=== PATIENT | male | born 1950 | race Caucasian/White ===

== ENCOUNTER → 2018-06-10 | Outpatient (CLI) | payer MEDICARE | LOC: M SMT 09:39 | DX: J44.9 Chronic obstructive pulmonary disease, unspecified (principal); R05 Cough | CPT/HCPCS: 71046 ==

== ENCOUNTER → 2019-11-16 | Outpatient (CLI) | payer MEDICARE ==
[~2019-11-16] MED LIST: ANDR1.62 TOP; ANOR1AER INH; ARNU1INH3 INH; ASPI-1 PO; ASPI81TA26 PO; ATEN25TA PO; FINA5TAB2 PO; FLOM0.4C39 PO; FLUT15.820 NARES; FURO40TA2 PO; FURO80TA2 PO; GABA-843 PO; HYDR-4517 PO; INVO100T PO; LANTINJ4 SC; LATA0.0015 OP; LEVO200T4 PO; LIDOCAINE 1% MDV 20ML VIAL As Ordered ONE; LISI-542 PO; LOSA25TA14 PO; METF500T13 PO; METF850T4 PO; NITR0.4S14 SL; PANT40TA3 PO; PROAAER10 INH; RANO500T7 PO; REST0.05 OU; ROSU40TA4 PO; TEST1.622 TD; TRIM100T8 PO; VICO10TA11 PO; VICT18IN SC; XALA0.007 OU; ZOLP5TAB PO
[2019-11-16 11:09] LABS: PH BODY FLUID 7.611 UNITS (NOT ESTABLISHED); SOURCE, BODY FLUID pH PLEURAL
[2019-11-16 11:11] LABS: APPEARANCE, BODY FLUID CLEAR (CLEAR); PLEURAL FL COLOR YELLOW (COLORLESS); SOURCE, BODY FLUID PLEURAL
[2019-11-16 11:50] LABS: AMYLASE, BODY FLUID 10 U/L (NOT ESTABLISHED); LDH, BODY FLUID 86 U/L (NOT ESTABLISHED); SOURCE, BODY FLUID AMYLASE PLEURAL; SOURCE, BODY FLUID GLUCOSE PLEURAL; SOURCE, BODY FLUID LDH PLEURAL; SOURCE, BODY FLUID TOT PROTEIN PLEURAL; TOTAL PROTEIN, BODY FLUID 3.5 G/DL (NOT ESTABLISHED)
[2019-11-16 11:53] LABS: ALBUMIN 2.4 GM/DL (3.2-5.2); ALT/SGPT 10 U/L (12-78); BILIRUBIN,TOTAL 0.6 MG/DL (0.2-1.0); BLOOD UREA NITROGEN 5 MG/DL (7-18); CALCIUM LEVEL 8.7 MG/DL (8.8-10.2); CARBON DIOXIDE LEVEL 29 MEQ/L (21-32); CHLORIDE LEVEL 104 MEQ/L (98-107); CREATININE FOR GFR 0.83 MG/DL (0.70-1.30); GLOMERULAR FILTRATION RATE > 60.0 (>49); GLUCOSE, FASTING 149 MG/DL (70-100); LDH LACTATE DEHYDROGENASE 342 U/L (87-241); POTASSIUM SERUM 4.8 MEQ/L (3.5-5.1); SODIUM LEVEL 136 MEQ/L (136-145); TOTAL PROTEIN 6.7 GM/DL (6.4-8.2)
[2019-11-16 12:15] VITALS: BP 138/63
--- NOTE | 2019-11-16 12:47 | REP ---
CHEST, TWO VIEWS: Two views of the chest are performed status post right thoracentesis. There is no pneumothorax. There appears to be some very mild residual pleural fluid or thickening on the right. There is a cavitating mass again seen inferiorly on the right. Small left effusion is noted with left basilar interstitial prominence. Heart is not significantly enlarged. There are degenerative changes of the spine. IMPRESSION: No pneumothorax, status post right thoracentesis. Electronically Signed by Ankur Varner MD 11/17/2019 10:03 A
--- NOTE | 2019-11-16 16:25 | REP ---
Ultrasound-guided thoracentesis The procedure was performed by JOSÉ Nguyen, under the direct supervision of Dr. Varner. The risks and benefits of the procedure were explained to the patient and informed consent was obtained both verbally and written. Directly prior to the start of the procedure, a formal timeout was completed in the exam room. Pleural fluid on the right lung zone was localized using ultrasound guidance. The skin was prepped and draped in a sterile fashion. 3 mL of 1% lidocaine 10 mg/ml was used as a local anesthetic. Using ultrasound guidance, an 8-Beninese multi side-hole catheter was inserted and advanced into the fluid. 1,500 ml of yellow colored fluid was withdrawn and sent to the lab for analysis. The patient tolerated the procedure well and there were no immediate complications. After the appropriate amount of monitored convalescence, the patient was discharged from the department. Reviewed by JOSÉ Montero 11/16/2019 01:59 P Electronically Signed by Ankur Varner MD 11/16/2019 04:17 P
--- NOTE | 2019-11-17 00:48 | REP ---
ACCOUNTING PROFESSOR CT IMAGES: Lime Slaker CT images are performed prior to a scheduled CT-guided biopsy of a right lung mass. There is a large pleural effusion, which surrounds the mass, and this increases the risks for the procedure, including pneumothorax and bleeding. After consultation with the referring clinician, we will perform thoracentesis today followed by the right lung biopsy in 48 hours. Electronically Signed by Ankur Varner MD 11/17/2019 10:31 A
== END ==
LOC: M IRPRO 08:20
PROVIDERS: ATTEND Internal Medicine Pulmonary Disease
DX: J90 Pleural effusion, not elsewhere classified (principal); R84.6 Abnormal cytological findings in specimens from respiratory organs and thorax

== ENCOUNTER 2019-11-18 07:01 | Inpatient (IN) | payer MEDICARE ==
[~2019-11-18] VITALS: Ht 188 cm; Wt 111.4 kg
[~2019-11-18 07:01] MED LIST changes: -FURO40TA2 PO; -HYDR-4517 PO; -METF850T4 PO; -TEST1.622 TD; -XALA0.007 OU
[2019-11-18] MEDS ORDERED: METF850T4 PO (07:48)
[2019-11-18] MEDS ORDERED: XALA0.007 OU (07:48)
[2019-11-18] MEDS ORDERED: TEST1.622 TD (07:48)
[2019-11-18] MEDS ORDERED: FURO40TA2 PO (07:48)
[2019-11-18] MEDS ORDERED: HYDR-4517 PO (07:48)
--- NOTE | 2019-11-18 10:34 | REP ---
CHEST, SINGLE VIEW: Single view of the chest is performed status post right lung biopsy. There is a small pneumothorax on the right. The air gap at the apex is 3 cm. Atelectatic changes are noted in the right lung. Cavitating mass in the right lung base is noted. Followup will be performed. Electronically Signed by Ankur Varner MD 11/18/2019 10:54 A
[2019-11-18] MEDS ORDERED: MIDAZOLAM INJ 2MG/2ML VIAL (J2250 PER 1MG) As Ordered ONE ×2 (12:19→12:20)
[2019-11-18] MEDS ORDERED: LIDOCAINE 1% MDV 20ML VIAL As Ordered ONE (12:20)
[2019-11-18] MEDS ORDERED: LIDOCAINE 2% MDV 20ML VIAL As Ordered ONE ×2 (12:20→13:30)
--- NOTE | 2019-11-18 12:30 | REP ---
CHEST, SINGLE VIEW: Single view of the chest is performed and compared to a prior exam the same day. The patient is status post right lung biopsy. There is a stable small right apical pneumothorax. Lungs are unchanged in appearance. Dr. Mack will be consulted to assess for possible chest tube placement or patient followup. Electronically Signed by Ankur Varner MD 11/18/2019 12:42 P
--- NOTE | 2019-11-18 13:40 | REP ---
CT-guided right lower lobe lung biopsy The procedure is performed by JOSÉ Nguyen, under the direct supervision of Dr. Varner. The risks and benefits of the procedure were explained to the patient and informed consent was obtained both orally and written. Directly prior to the start of the procedure, a formal timeout was done in the exam room. The right lower lobe lung mass was localized using CT guidance. Skin was prepped and draped in the usual sterile fashion. 4 ml of 1% lidocaine 10 mg/ml was used as a local anesthetic. Using CT guidance a 19/20 gauge coaxial needle biopsy system was inserted and advanced into the nodule. 6 core biopsy samples were obtained and sent to the lab. CT images obtained directly after the biopsy show a small pneumothorax as well as a small pleural effusion. After 2 hours of monitored convalescence in the department the pneumothorax did not get any better. Dr. Mack was called, and placed a chest tube in the IR department. The patient was transferred to his service and admitted under his care. Reviewed by JOSÉ Montero 11/18/2019 01:29 P Electronically Signed by Ankur Varner MD 11/18/2019 01:32 P
[2019-11-18] MEDS ORDERED: NORCO, ANEXSIA 5/325MG TABLET (HYDROcodone/ACETAMINOPHEN) PO PRN (13:45)
[2019-11-18] MEDS ORDERED: ACETAMINOPHEN TAB 650MG DOSE (2X325MG) PO PRN (13:45)
[2019-11-18] MEDS ORDERED: LEVALBUTEROL 1.25 MG/0.5 ML CONCENTRATE NEB NEB PRN (13:45)
[2019-11-18] MEDS ORDERED: BISACODYL 10 MG SUPP PR PRN (13:45)
[2019-11-18] MEDS ORDERED: PERCOCET 5MG/325MG TAB PO PRN (13:45)
[2019-11-18] MEDS ORDERED: NITROGLYCERIN 0.4 MG SUBL TABLET SL PRN (13:45)
[2019-11-18] MEDS ORDERED: ONDANSETRON 4MG/2ML VIAL IV PRN (13:45)
[2019-11-18 13:55] VITALS: BP 124/62
[2019-11-18 14:09] LABS: APPEARANCE, BODY FLUID CLOUDY (CLEAR); PLEURAL FL COLOR PALE YELLOW (COLORLESS); SOURCE, BODY FLUID PLEURAL
[2019-11-18 14:15] LABS: PH BODY FLUID 7.641 UNITS (NOT ESTABLISHED); SOURCE, BODY FLUID pH PLEURAL
--- NOTE | 2019-11-18 14:33 | REP ---
CHEST, SINGLE VIEW: Single view of the chest is performed. Comparison made with the prior exams of the same day. The patient is status post right lung biopsy with resultant small pneumothorax. A right chest tube has been placed. There may be a very tiny residual right apical pneumothorax. Right basilar cavitating mass is again noted. Prominent interstitial opacities bilaterally are unchanged. Electronically Signed by Ankur Varner MD 11/18/2019 02:57 P
[2019-11-18 14:38] LABS: AMYLASE, BODY FLUID 11 U/L (NOT ESTABLISHED); CHOLESTEROL, BODY FLUID < 50 MG/DL (NOT ESTABLISHED); LDH, BODY FLUID 120 U/L (NOT ESTABLISHED); SOURCE, BODY FLUID ALBUMIN PLEURAL; SOURCE, BODY FLUID AMYLASE PLEURAL; SOURCE, BODY FLUID CHOL PLEURAL; SOURCE, BODY FLUID GLUCOSE PLEURAL; SOURCE, BODY FLUID LDH PLEURAL; SOURCE, BODY FLUID TOT PROTEIN PLEURAL; SOURCE, BODY FLUID TRIG PLEURAL; TOTAL PROTEIN, BODY FLUID 2.9 G/DL (NOT ESTABLISHED); TRIGLYCERIDE, BODY FLUID 17 MG/DL (NOT ESTABLISHED)
[2019-11-18 14:57] LABS: BASO % 0.2 % (0.0-1.0); EOS % 0.3 % (0.0-3.0); HEMATOCRIT 34.6 % (42.0-52.0); HEMOGLOBIN 10.7 g/dl (13.5-17.5); LYMPH # 0.7 10^3/uL (1.5-5.0); LYMPH % 7.1 % (24.0-44.0); MEAN CORPUSCULAR HEMOGLOBIN 27.6 pg (27.0-33.0); MEAN CORPUSCULAR HGB CONC 30.9 g/dl (32.0-36.5); MEAN CORPUSCULAR VOLUME 89.4 fl (80.0-96.0); MONO # 0.6 10^3/uL (0.0-0.8); MONO % 6.1 % (0.0-5.0); NEUTROPHILS % 85.9 % (36.0-66.0); PLATELET COUNT, AUTOMATED 282 10^3/uL (150-450); RED BLOOD COUNT 3.87 10^6/uL (4.30-6.10); WHITE BLOOD COUNT 9.4 10^3/uL (4.0-10.0)
--- NOTE | 2019-11-18 15:04 | HPE ---
DATE OF ADMISSION: 11/18/2019 The patient seen at the urgent request of radiology for a pneumothorax after a lung biopsy of a cavitary right lower lobe lesion. HISTORY OF PRESENT ILLNESS: The patient is a 69-year-old white male whose antecedent history revealed a right lower lobe cavitary lesion on a CT scan done in early September. He was seen by Dr. Haas of pulmonology and sent for a needle biopsy. He also had a pleural effusion which was tapped a few days ago without incident. The pleural fluid was returned with a pH of 7.6 with an LDH of 86, total protein of 30.5. His total protein yesterday was 6.7 with an LDH of 342, making this a transudative effusion. The majority of his cells were mononuclears and lymphocytes. 10% were PMNs and 90% were the mononuclear lymphocytes. Glucose was 141. He states that after his pleural fluid was drained, he had hemoptysis. Other than that, he denies cough or sputum production. He denies fevers, chills, or sweats. He does get short of breath just walking about a block. He can do the daily activities of livings in his house, however. He swallows all right and eats all right. He does not complain of any chest pain or chest discomfort. He denies orthopnea or paroxysmal nocturnal dyspnea. In June, he was also seen by Dr. Haas, and he was found to be dizzy, weak, and pale with bibasilar crackles and lower extremity edema, and he was sent to the emergency room. He, however, detoured and did not go to the emergency room that day. PAST MEDICAL HISTORY: Includes: 1. Diabetes. 2. Coronary artery disease, status post stenting times two in the left anterior descending coronary artery. 3. Atrial fibrillation, status post an ablation in 2016 and a cardioversion in the same year. 4. Degenerative disc disease. 5. Obstructive sleep apnea, on continuous positive airway pressure (CPAP) therapy at home of 9 cm of water. 6. Prior morbid obesity, status post gastric bypass. PAST SURGERIES: The above gastric bypass, the above stenting procedures, the above ablation, bilateral cataract surgery. HABITS: Was a former smoker. TRAVEL HISTORY: Not obtained. OCCUPATIONAL HISTORY: Not obtained. FAMILY HISTORY: Not relative to the acute situation. MEDICATIONS AT HOME: - ProAir two puffs four times a day - aspirin 325 mg every day - atenolol 25 mg every day - Invokana 300 mg every day - Restasis one drop both eyes (OU) twice a day - finasteride 5 mg every day - fluconazole Ellipta one puff every day - Lasix 80 mg every day - gabapentin 300 mg every day - Vicodin 10/325 every 4 hours - insulin glargine 18 units subcutaneous nightly - Victoza 1.2 mg subcutaneous every day - losartan 25 mg every day - Synthroid 200 mcg every day - Xalatan one drop OU nightly - metformin 850 mg three times a day - nitroglycerin 0.4 mg sublingually every 5 minutes as needed as needed chest pain - pantoprazole 40 mg every day - rosuvastatin 40 mg every day - Ranexa 500 mg twice a day - Flomax 0.4 mg nightly - trimethoprim 100 mg every day - Anoro Ellipta one puff every day - zolpidem 5 mg nightly REVIEW OF SYSTEMS: CONSTITUTIONAL: See history of present illness (HPI). EYES: With cataracts. Without diplopia or prior jaundice. NOSE: Without epistaxis. RESPIRATORY: See HPI. CARDIAC: See HPI. GASTROINTESTINAL (GI): Without nausea, vomiting, diarrhea, constipation, melena, or hematochezia. GENITOURINARY (): Without hematuria or dysuria or prior renal stones. NEUROLOGIC: With paresthesias, paralyses, or seizures. PSYCHIATRIC: Without pathological anxieties, depressions, or psychoses. PHYSICAL EXAMINATION: An obese white male in no acute distress. He is rather inpatient with me in giving me a history. VITAL SIGNS: Temperature is 97.6, heart rate is 73 in sinus rhythm with PACs, respiratory rate is 18 without the use of accessory muscles, he is 100% saturated on 2 liters nasal cannula, and his blood pressure is 108/56, his body mass index (BMI) is 37.4. EYES: Pupils equal, round, and reactive to light. Extraocular muscles intact. Sclerae anicteric. NOSE: Without deformity. MOUTH: Shows his mucous membranes to be pink and moist. Lips and commissures without lesions. There is no thrush. LUNGS: Show bibasilar crackles in either side with decreased breath sounds on the right side. Percussion note is full to the diaphragm. CARDIOVASCULAR EXAMINATION: Is without murmurs, click, gallops, or rubs. I cannot feel his point of maximal impulse (PMI). S1 and S2 are normal. He does have an irregular rate and rhythm with his PACs. ABDOMEN: Is soft, nontender. I cannot appreciate hepatomegaly through the obesity. There is no costovertebral angle (CVA) tenderness. EXTREMITIES: Show 2+ pretibial edema. No calf tenderness. No differential swelling of the upper extremities. SKIN: Is warm, dry, and perfused without cyanosis or mottling, including that of the nail beds and the knees. PSYCHIATRIC: Shows him to be awake and alert, oriented times three with appropriate mood and affect and conversational. INVESTIGATIONS: Chemistries on 11/16/2019 showed normal electrolytes with BUN and creatinine of 5 and 0.83, a glucose of 149, and a calcium of 8.7, with normal liver functions and increased LVH of 3.42, albumin is 2.4. Complete blood count (CBC) is pending. I discussed his pleural fluid from a few days ago in the history of present illness. His chest x-ray shows a large pneumothorax approximately 30%. There is no mediastinal shift. Left costophrenic angle is sharp. Right costophrenic angle is blunted. It is an AP portable film. Review of his chest CT done on 09/23/2019 at [facility] shows a large pleural effusion on the right side which was subsequently drained. He has a cavitary lesion in the right lower lobe. He also has a lower lobe nodule in the apical basal segment of the lower lobe. There is an infiltrative process in the left lower lobe proximally. There is no pericardial effusion. The great vessel looked to be intact. Adrenals have a normal configuration. He has emphysematous disease, particularly in the upper lobes, a large bullous in the left upper lobe. His spirometry done on 09/23/2019 shows an FEV1 of 2.16 with an FVC of 2.82 with an FEV1/FVC ratio of 76, which is 100% of predicted. His FEV1 is 59% of predicted. His FVC is 57% of predicted. It looks as though he has both obstructive and restrictive disease. His flow volume loop looks to have a scooped-out appearance consistent with obstruction disease. I suspect his restrictive disease is secondary to his obesity but perhaps to the prior pleural effusion. PLAN AND DISCUSSION: I will place an anterior chest tube. I have a feeling that his lower lobe may be stuck to his chest wall, and I do not want to put a lateral chest tube. Will continue on his home medications and place him on subcutaneous heparin for deep venous thrombosis (DVT) prophylaxis. I will ask the hospitalist to consult for his multiple medical problems. MITCHELL
[2019-11-18 15:23] LABS: BLOOD UREA NITROGEN 7 MG/DL (7-18); CALCIUM LEVEL 8.7 MG/DL (8.8-10.2); CARBON DIOXIDE LEVEL 27 MEQ/L (21-32); CHLORIDE LEVEL 104 MEQ/L (98-107); CREATININE FOR GFR 0.82 MG/DL (0.70-1.30); GLOMERULAR FILTRATION RATE > 60.0 (>49); GLUCOSE, FASTING 121 MG/DL (70-100); LDH LACTATE DEHYDROGENASE 146 U/L (87-241); POTASSIUM SERUM 4.4 MEQ/L (3.5-5.1); SODIUM LEVEL 136 MEQ/L (136-145)
[2019-11-18] MEDS: PANTOPRAZOLE 40MG TAB (PROTONIX) PO SCH (15:30)
[2019-11-18] MEDS: ROSUVASTATIN 10 MG TAB (CRESTOR) PO SCH (15:31)
[2019-11-18] MEDS: GABAPENTIN 300 MG CAP PO SCH (15:31)
[2019-11-18] MEDS: FINASTERIDE 5 MG TAB PO SCH (15:31)
[2019-11-18] MEDS: FUROSEMIDE 80 MG TAB PO SCH (15:32)
[2019-11-18] MEDS: atenoloL 25 MG TAB PO SCH (15:32)
[2019-11-18] MEDS: KETOROLAC 30 MG/ML 1ML VIAL IV SCH ×2 (15:32→21:20)
[2019-11-18] MEDS: LOSARTAN 25 MG TAB PO SCH (15:33)
[2019-11-18] MEDS: KCL 20MEQ IN D5/NS 1000ML 1,000 ML IV SCH (15:33)
[2019-11-18] MEDS: LEVALBUTEROL 1.25 MG/0.5 ML CONCENTRATE NEB NEB SCH ×2 (15:41→21:05)
[2019-11-18 16:00] VITALS: BP 130/63
[2019-11-18] MEDS: HumaLOG INSULIN (NovoLOG) PER UNIT SC SCH ×2 (17:30→21:00)
[2019-11-18] MEDS ORDERED: GLUCAGON INJ 1MG VIAL SC PRN (17:45)
[2019-11-18] MEDS ORDERED: DEXTROSE 50% 50 ML SYRINGE IV PRN (17:45)
[2019-11-18] MEDS ORDERED: GLUCOSE 4GM CHEW TABLET PO PRN (17:45)
--- NOTE | 2019-11-18 18:30 | HPEPDOC ---
[facility] Medical History & Physical Date of Admission Nov 18, 2019 Date of Service: Nov 18, 2019 Attending Physician: ODIN LONG MD History and Physical CHIEF COMPLAINT: Pneumothorax, admitted by CT surgery HISTORY OF PRESENT ILLNESS: 69 yo man well known to pulmonology, undergoing work up with Dr. Haas for a RLL cavitary lesion who was sent to CT surgery for a needle biopsy who is now being admitted post R lung biopsy c/b a pneumothorax now s/p chest tube placement. Of note, he had a thoracentesis a few days ago that showed a lymphocytic transudative fluid, and post thora course was c/b mild hemoptysis, but did not develop and fevers, chills, or sweats and has remained with baseline AGRAWAL that is not inhibiting his daily function. He otherwise came in for the biopsy and on chest XR post biopsy he developed a small pneumothorax for which a chest tube has now been placed and he is admitted by CT surgery. PAST MEDICAL HISTORY: 1. Diabetes. 2. Coronary artery disease, s/p PCI x 2 3. Atrial fibrillation, status post an ablation in 2016 and a cardioversion in the same year, not on anticoagulation 4. Degenerative disc disease. 5. Obstructive sleep apnea, on CPAP, at PEEP of 9 6. Prior morbid obesity PAST SURGICAL HISTORY: -Gastric bypass -LHC with PCI x 2 stents -Cardiac ablation -bilateral cataract surgery. SOCIAL HISTORY: -former smoker REVIEW OF SYSTEMS: 12 point ROS was reviewed and otherwise negative if not noted above. PHYSICAL EXAMINATION: Vitals : as below Gen: Obese, NAD EYES: PERRLA, EOMI, anicteric ENT: MMM, clear posterior oropharynx LUNGS: Bibasilar crackles, appears to have diminished sounds on the right side, otherwise without wheezing or rhonchi CARDIAC: Regular rate and rhythm with some ectopic beats, no mrg ABDOMEN: Obese, normoactive, soft, nontender EXTREMITIES: WWP, 2+ pretibial edema SKIN: no lesions or rashes noted PSYCHIATRIC: AOx3 Labs: reviewed. CBC and BMP wnl Imaging: Post lung biopsy and chest tube placement CXR: The patient is status post right lung biopsy with resultant small pneumothorax. A right chest tube has been placed. There may be a very tiny residual right apical pneumothorax. Right basilar cavitating mass is again noted. Prominent interstitial opacities bilaterally are unchanged. Assessment: 69 yo man well known to pulmonology, undergoing work up with Dr. Haas for a RLL cavitary lesion who was sent to CT surgery for a needle biopsy who is now being admitted post needle biopsy c/b a pneumothorax now s/p chest tube placement. Plan: Pneumothorax: post procedural complication without midline shift or distress. Now s/p chest tube, doing well -s/p anterior chest tube. -pain management per CT surgery History of Afib: -aspirin 325 mg every day -s/p cardioversion and ablation -monitor on telemetry DM: -hold invokana, metformin and start SSI, hypoglycemia protocol, FSBG AC/HS -continue home levemir 18U QHS CAD s/p PCI x 2: -continue ASA 325 -continue atenolol and ranexa -continue PRN SLN CHF: -continue atenolol, losartan, daily lasix at home dose of 80mg PO Macular degeneration: -patient own med for restasis -Xalatan one drop OU nightly BPH: -continue finasteride 5 mg every day -continue flomax 0.4 mg nightly COPD/asthma -substitute advair for anoro ellipta -substitute flovent for arnuity ellipta KHANH: -CPAP with peep of 9 per home setting Peripheral neuropathy: -continue gabapentin 300 mg every day HLD: -rosuvastatin 40 mg every day GERD: -pantoprazole 40 mg every day HTN -losartan 25 mg every day -home beta wicho as above Hypothyroidism: -Synthroid 200 mcg every day Insomnia - continue home zolpidem 5 mg nightly DVT ppx: heparin SQ Q12H Diet: consistent carb diet Vital Signs Vital Signs Date Time Temp Pulse Resp B/P (MAP) Pulse Ox O2 Delivery O2 Flow Rate FiO2 11/18/19 16:00 3.0 11/18/19 16:00 98.5 62 16 130/63 (85) 100 Room Air Laboratory Data Labs 24H Laboratory Tests 2 11/18/19 07:14: Bedside Glucose (Misc Panel) 140H 11/18/19 13:20: Body Fluid pH 7.641, Body Fluid pH Source PLEURAL, Body Fluid WBC (Auto) 1930H, Body Fluid RBC (Auto) 5, Body Fluid Mononuclear Cells % Auto 61.8H, Fluid Polymo rphonuclear Cell % Auto 38.2H, Body Fluid Glucose Source PLEURAL, Body Fluid Glucose 131, Body Fluid Protein Source PLEURAL, Body Fluid Total Protein 2.9, Body Fluid Albumin Source PLEURAL, Body Fluid Albumin 1.1, Body Fluid LDH Source PLEURAL, Body Fluid Lactate Dehydrogenase 120, Body Fluid Amylase Source PLEURAL, Body Fluid Amylase 11, Body Fluid Cholesterol < 50, Body Fluid Cholesterol Source PLEURAL, Body Fluid Triglyceride Source PLEURAL, Body Fluid Triglycerides 17, Pleural Fluid Source PLEURAL, Pleural Fluid Color PALE YELLOW, Pleural Fluid Appearance CLOUDY 11/18/19 14:45: Immature Granulocyte % (Auto) 0.4, Neutrophils (%) (Auto) 85.9H, Lymphocytes (%) (Auto) 7.1L, Monocytes (%) (Auto) 6.1H, Eosinophils (%) (Auto) 0.3, Basophils (%) (Auto) 0.2, Neutrophils # (Auto) 8.0, Lymphocytes # (Auto) 0.7L, Monocytes # (Auto) 0.6, Eosinophils # (Auto) 0.0, Basophils # (Auto) 0.0, Nucleated Red Blood Cells % (auto) 0.0, Anion Gap 5L, Glomerular Filtration Rate > 60.0, Calcium Level 8.7L, Lactate Dehydrogenase 146 11/18/19 17:20: Bedside Glucose (Misc Panel) 154H CBC/BMP Laboratory Tests 11/18/19 14:45 Microbiology Microbiology 11/18/19 Acid Fast Stain, Received Pending 11/18/19 Mycobacterial Culture, Received Pending 11/18/19 Fungal Smear, Received Pending 11/18/19 Fungal Culture, Received Pending 11/18/19 Gram Stain - Final, Resulted 11/18/19 Body Fluid Culture, Resulted Pending 11/18/19 Anaerobic Culture, Resulted Pending Home Medications Scheduled Aspirin (Aspirin) 325 Mg Tablet, 325 MG PO DAILY HELD PRIOR TO PROCEDURE Atenolol (Atenolol) 25 Mg Tablet, 25 MG PO DAILY Canagliflozin (Invokana) 100 Mg Tablet, 300 MG PO DAILY Cyclosporine (Restasis) 0.05% Droperette, 1 DROP OU BID Finasteride (Finasteride) 5 Mg Tablet, 5 MG PO DAILY Fluticasone Furoate (Arnuity Ellipta) 200 Mcg Blst.w.dev, 1 PUFF INH DAILY Fluticasone Propionate (Fluticasone Propionate) 15.8 Ml Reading.susp, 1 SPRAY NARES BID Furosemide (Furosemide) 40 Mg Tablet, 80 MG PO DAILY Gabapentin (Gabapentin) 300 Mg Capsule, 300 MG PO DAILY Insulin Glargine,Hum.rec.anlog (Lantus Solostar) 100 Unit/1 Ml Insuln.pen, 18 UNITS SC QHS Latanoprost (Xalatan) 0.005% 2.5ML Drops, 1 DROP OU QHS Levothyroxine Sodium (Levothyroxine Sodium) 200 Mcg Tablet, 200 MCG PO DAILY Liraglutide (Victoza 2-Aquilino) 0.6 Mg/0.1 Ml Pen.injctr, 1.2 MG SC DAILY Losartan Potassium (Losartan Potassium) 25 Mg Tablet, 25 MG PO DAILY Metformin HCl (Metformin HCl) 850 Mg Tablet, 850 MG PO TID WITH MEALS Pantoprazole Sodium (Pantoprazole Sodium) 40 Mg Tablet.dr, 40 MG PO DAILY Ranolazine (Ranexa) 500 Mg Tab.er.12h, 500 MG PO BID Rosuvastatin Calcium (Rosuvastatin Calcium) 40 Mg Tablet, 40 MG PO DAILY Tamsulosin HCl (Flomax) 0.4 Mg Capsule, 0.4 MG PO QHS Testosterone (Testosterone) 75 Gm Gel..engineer first assistant, 4 PUMP TD DAILY APPLIED TO LEFT ARM Trimethoprim (Trimethoprim) 100 Mg Tablet, 100 MG PO DAILY Umeclidinium Brm/Vilanterol Tr (Anoro Ellipta 62.5-25 Mcg INH) 1 Each Blst.w.dev, 1 PUFF INH DAILY Scheduled PRN Albuterol Sulfate (Proair Hfa) 8.5 Gm Hfa.aer.ad, 2 PUFF INH QID PRN for SOB/WHEEZING Hydrocodone/Acetaminophen (Hydrocodone-Acetamin 10-325 mg) 1 Each Tablet, 1 TAB PO Q4H PRN for PAIN Nitroglycerin (Nitroglycerin) 0.4 Mg Tab.subl, 0.4 MG SL Q5MP PRN for CHEST PAIN Zolpidem Tartrate (Zolpidem Tartrate) 5 Mg Tablet, 5 MG PO QHS PRN for SLEEP Allergies Coded Allergies: No Known Allergies (Unverified , 11/12/19) A-FIB/CHADSVASC A-FIB History Current/History of A-Fib/PAF?: Yes Current PO Anticoag Therapy: No Age/Risk Factor Scoring CHADSVASC: CHADSVASC Response (Comments) Value Age Risk Factor Age 65-74 years old 1 Gender Risk Factor Male 0 Hx of CHF Yes 1 Hx of HTN Yes 1 Hx of Stroke/TIA/or VTE No 0 Hx of Diabetes Yes 1 Hx of Vascular Disease Yes 1 Total 5 Treatment Treatment ordered: NONE Reason Anticoagulant not given: Recent/upcomin procedure ODIN LONG MD Nov 18, 2019 18:30
[2019-11-18 20:00] VITALS: BP 140/76
[2019-11-18] MEDS ORDERED: FLUTICASONE PROP 0.05% NASAL SPRAY 16 GM (FLONASE) NARES SCH (21:00)
[2019-11-18] MEDS: LATANOPROST 0.005% OPHTH SOLN 2.5 ML OU SCH (21:00)
[2019-11-18] MEDS ORDERED: ADVAIR HFA 115/21MCG INHALER INH SCH (21:00)
[2019-11-18] MEDS ORDERED: FLUTICASONE HFA 110 MCG 12 GM INHALER (FLOVENT) INH SCH (21:00)
[2019-11-18] MEDS: FLUTICASONE HFA 110 MCG 12 GM INHALER (FLOVENT) INH SCH (21:00)
[2019-11-18] MEDS: FORMOTEROL FUMARATE 20 MCG/2 ML INHALATION SOLUTION (PERFOROMIST) INH SCH (21:04)
[2019-11-18] MEDS: DOCUSATE SODIUM 100 MG CAP PO SCH (21:19)
[2019-11-18] MEDS: HEPARIN SOD (PORCINE) 5000UNITS/ML VIAL (J1644 PER 1000UNITS) SC SCH (21:19)
[2019-11-18] MEDS: RANOLAZINE 500 MG ER TAB PO SCH (21:19)
[2019-11-18] MEDS: TAMSULOSIN 0.4 MG CAP PO SCH (21:19)
[2019-11-18] MEDS: LEVEMIR (INSULIN DETEMIR) 1 UNITS/0.01ML SC SCH (21:20)
[2019-11-19] VITALS: BP 124/61
[2019-11-19] MEDS: LEVALBUTEROL 1.25 MG/0.5 ML CONCENTRATE NEB NEB SCH ×4 (02:32→20:22)
[2019-11-19] MEDS: KETOROLAC 30 MG/ML 1ML VIAL IV SCH ×4 (03:00→21:39)
[2019-11-19 04:00] VITALS: BP 143/64
[2019-11-19] MEDS: KCL 20MEQ IN D5/NS 1000ML 1,000 ML IV SCH (04:36)
[2019-11-19 05:25] LABS: BASO % 0.3 % (0.0-1.0); EOS # 0.2 10^3/uL (0.0-0.5); EOS % 2.5 % (0.0-3.0); HEMOGLOBIN 10.8 g/dl (13.5-17.5); LYMPH # 0.9 10^3/uL (1.5-5.0); LYMPH % 9.9 % (24.0-44.0); MEAN CORPUSCULAR HEMOGLOBIN 27.3 pg (27.0-33.0); MEAN CORPUSCULAR HGB CONC 30.9 g/dl (32.0-36.5); MEAN CORPUSCULAR VOLUME 88.6 fl (80.0-96.0); MONO # 0.7 10^3/uL (0.0-0.8); MONO % 8.5 % (0.0-5.0); NEUTROPHILS # 6.8 10^3/uL (1.5-8.5); NEUTROPHILS % 78.5 % (36.0-66.0); PLATELET COUNT, AUTOMATED 306 10^3/uL (150-450); RED BLOOD COUNT 3.95 10^6/uL (4.30-6.10); WHITE BLOOD COUNT 8.7 10^3/uL (4.0-10.0)
[2019-11-19 05:44] LABS: BLOOD UREA NITROGEN 10 MG/DL (7-18); CALCIUM LEVEL 8.6 MG/DL (8.8-10.2); CARBON DIOXIDE LEVEL 30 MEQ/L (21-32); CHLORIDE LEVEL 104 MEQ/L (98-107); GLOMERULAR FILTRATION RATE > 60.0 (>49); GLUCOSE, FASTING 162 MG/DL (70-100); POTASSIUM SERUM 3.9 MEQ/L (3.5-5.1); SODIUM LEVEL 140 MEQ/L (136-145)
[2019-11-19 06:01] LABS: ABG O2 SATURATION 98.6 % (95.0-99.0); ABG PARTIAL PRESSURE CO2 44.5 mmHg (35.0-45.0); ABG PARTIAL PRESSURE O2 119.2 mmHg (75.0-100.0); ABG STANDARD HCO3 27.2 MEQ/L (22.0-26.0); ABG TOTAL CO2 29.3 MEQ/L (23.0-31.0); ABG pH (ARTERIAL) 7.416 UNITS (7.350-7.450)
[2019-11-19] MEDS: LEVOTHYROXINE 100MCG TABLET (0.1MG) PO SCH (06:02)
[2019-11-19] MEDS: TIOTROPIUM INHALER/CAPSULE (SPIRIVA) INH SCH (07:17)
[2019-11-19] MEDS: FLUTICASONE HFA 110 MCG 12 GM INHALER (FLOVENT) INH SCH ×2 (07:18→20:22)
[2019-11-19] MEDS: FORMOTEROL FUMARATE 20 MCG/2 ML INHALATION SOLUTION (PERFOROMIST) INH SCH ×2 (07:18→20:22)
[2019-11-19 08:00] VITALS: BP 143/63
[2019-11-19] MEDS ORDERED: metFORMIN 850 MG TAB PO SCH (08:00)
[2019-11-19] MEDS ORDERED: TIOTROPIUM INHALER/CAPSULE (SPIRIVA) INH SCH (08:00)
[2019-11-19] MEDS: PANTOPRAZOLE 40MG TAB (PROTONIX) PO SCH (08:29)
[2019-11-19] MEDS: DOCUSATE SODIUM 100 MG CAP PO SCH ×2 (08:29→21:39)
[2019-11-19] MEDS: HumaLOG INSULIN (NovoLOG) PER UNIT SC SCH ×4 (08:29→21:00)
[2019-11-19] MEDS: MOM 30ML SUSPENSION UDC PO SCH (08:29)
[2019-11-19] MEDS: FINASTERIDE 5 MG TAB PO SCH (08:30)
[2019-11-19] MEDS: FUROSEMIDE 80 MG TAB PO SCH (08:30)
[2019-11-19] MEDS: RANOLAZINE 500 MG ER TAB PO SCH ×2 (08:30→21:39)
[2019-11-19] MEDS: ASPIRIN 325 MG TAB PO SCH (08:30)
[2019-11-19] MEDS: GABAPENTIN 300 MG CAP PO SCH (08:30)
[2019-11-19] MEDS: ROSUVASTATIN 10 MG TAB (CRESTOR) PO SCH (08:30)
[2019-11-19] MEDS: LOSARTAN 25 MG TAB PO SCH (08:30)
[2019-11-19] MEDS: HEPARIN SOD (PORCINE) 5000UNITS/ML VIAL (J1644 PER 1000UNITS) SC SCH (08:32)
[2019-11-19] MEDS: atenoloL 25 MG TAB PO SCH (08:32)
--- NOTE | 2019-11-19 09:02 | REP ---
REASON FOR EXAM: Followup. COMPARISON: Multiple, the latest 11/18/2019, a portable exam. The right-sided thoracotomy tube is unchanged. Once again, a tiny right apical pneumothorax is suspected status quo. Bullous emphysematous changes are seen in the left lung apex status quo. There are bibasilar opacities which are stable in appearance. No new abnormal opacities have developed. There is no significant change in the appearance of the osseous structures. IMPRESSION: No significant change from the prior exam as described above. Electronically Signed by Delio Kelley DO 11/19/2019 10:16 A
--- NOTE | 2019-11-19 09:32 | IPN ---
DATE: 11/19/2019 Mr. Brewer is doing well. His pain is being well controlled at the chest tube insertion site and he is breathing well. His vital signs show a T-max of 98.5, with a heart rate that ranges between 62 and 57 in a sinus rhythm with PACs, respiratory rate is 16 to 20 without the use of accessory muscles, who is 100% saturated on 3 liters nasal cannula and whose blood pressure is ranging between 135/60 to 143/64. His intake and output the past 24 hours has been recorded as 472 in and 2050 out for a negativity of 1578 mL. He weighs 115 kg today compared to 118.7 kg yesterday. He has put out 2050 mL in urine and 9 mL from the chest tube. On physical examination, he has equal breath sounds on either side. They are both markedly decreased on either side. Percussion note is full to the diaphragm. Cardiac Exam: Without murmurs, clicks, gallops, or rubs. I cannot feel his PMI. S1, S2 are normal. Abdomen: Soft. Nontender. Bowel sounds are positive. There is no hepatomegaly that I can feel through his obesity. There is no costovertebral angle (CVA) tenderness. Extremities: Show 3+ pretibial edema. No calf tenderness. No differential swelling of the upper extremities. Skin: Warm, dry and perfused. Without cyanosis or mottling, including that of the nail beds and knees. Neck: Supple. There is no jugular venous distention. No subcutaneous emphysema. Trachea is midline. Mouth: Shows his mucous membranes to be pink and moist. Lips and commissures are without lesions. There is no thrush. Eyes: Show his pupils to be equal and reactive. Extraocular movements intact. Sclerae nonicteric. Neurologic: Shows II-XII intact along with gross motor and gross sensation intact. Gait is not tested. Psychiatric shows him to be awake, alert, and oriented times three with appropriate mood and affect and conversational. His white count today is 8.7 with hemoglobin and hematocrit of 10.8 and 35.0 with a platelet count of 306 and stable. Differential shows 78% neutrophils, 9% lymphocytes and 8% monocytes. White count and hemoglobin/hematocrit (H/H) are essentially unchanged from yesterday. His chemistries show normal electrolytes with a BUN and creatinine of 10 and 0.90 with a glucose of 162 and calcium of 8.6. Blood gases this morning show a pH of 7.41, pCO2 of 44, and pO2 of 112, with a base excess of 3.0. His pleural fluid from yesterday shows a pH of 7.64, with glucose of 131, total protein of 2.9, and a LDH of 120 with a corresponding lactate dehydrogenase of 146. He shows 1930 white cells, 61% of which are mononuclear lymphocytes and 31% are neutrophils. This therefore looks like a lymphocytic mildly exudative effusion. It is normoglycemic. Pathology is pending. His chest x-ray today shows the lung fully expanded to the chest wall. Chest tube is in a good place. The cavitary lesion can be seen in the right lower lobe. His left costophrenic angle is minimally blunted. There is no subcutaneous emphysema. There is no air leak from his chest tube. IMPRESSION: 1. Pneumothorax status post lung biopsy right side. 2. Diabetes. 3. Coronary artery disease. 4. Congestive heart failure. 5. Benign prostatic hypertrophy. 6. Chronic obstructive pulmonary disease. 7. Obstructive sleep apnea. 8. Hyperlipidemia. 9. Gastroesophageal reflux disease. 10. Hypertension. 11. Hypothyroidism. 12. History of atrial fibrillation, now in sinus rhythm. PLAN AND DISCUSSION: I will discontinue his chest tube suction today. If all goes well and the chest x-ray shows his lung fully expanded to the chest wall, I will remove the chest tube in the morning. We will await pathology. I have notified Dr. Haas of his admission.
[2019-11-19 12:00] VITALS: BP 112/53
[2019-11-19] MEDS ORDERED: SLF 3 ML SYR IV PRN (15:45)
[2019-11-19 16:00] VITALS: BP 141/66
--- NOTE | 2019-11-19 18:04 | IPNPDOC ---
Text Note Date of Service The patient was seen on 11/19/19. NOTE Subjective: -No complaints this AM PHYSICAL EXAMINATION: Vitals : as below Gen: Obese, NAD EYES: PERRLA, EOMI, anicteric ENT: MMM, clear posterior oropharynx LUNGS: Bibasilar crackles, appears to have diminished sounds on the right side, otherwise without wheezing or rhonchi CARDIAC: Regular rate and rhythm with some ectopic beats, no mrg ABDOMEN: Obese, normoactive, soft, nontender EXTREMITIES: WWP, 2+ pretibial edema SKIN: no lesions or rashes noted PSYCHIATRIC: AOx3 Labs: reviewed. WBC 8.7 hgb 10.8 ABG 7.4/44.5/119.2 na 140 K 3.9 Cr 0.9 Assessment: 69 yo man well known to pulmonology, undergoing work up with Dr. Haas for a RLL cavitary lesion who was sent to CT surgery for a needle biopsy who is now being admitted post needle biopsy c/b a pneumothorax now s/p chest tube placement. Plan: Pneumothorax: post procedural complication without midline shift or distress. Now s/p chest tube, doing well -s/p anterior chest tube. -pain management per CT surgery -stable AM CXR RLL cavitary lesions: -s/p biopsy on 11/17, pending pathology and quant gold History of Afib: -aspirin 325 mg every day -s/p cardioversion and ablation -monitor on telemetry DM: -continue holding invokana, metformin and start SSI, hypoglycemia protocol, FSBG AC/HS -continue home levemir 18U QHS -consistent carb diet CAD s/p PCI x 2: -continue ASA 325 -continue atenolol and ranexa -continue PRN SLN CHF: -continue atenolol, losartan, daily lasix at home dose of 80mg PO daily Macular degeneration: -patient own med for restasis -Xalatan one drop OU nightly BPH: -continue finasteride 5 mg every day -continue flomax 0.4 mg nightly COPD/asthma -continue in hospital substitute for anoro ellipta -continue in hospital substitute for arnuity ellipta KHANH: -CPAP with peep of 9 per home setting Peripheral neuropathy: -continue gabapentin 300 mg every day HLD: -rosuvastatin 40 mg every day GERD: -pantoprazole 40 mg every day HTN -losartan 25 mg every day -home beta wicho as above Hypothyroidism: -Synthroid 200 mcg every day Insomnia - continue home zolpidem 5 mg nightly DVT ppx: heparin SQ Q12H Diet: consistent carb diet Dispo: PCU with chest tube in place and CT surgery managing as primary team Ankita LARA, I+O VSAnkita I+O Laboratory Tests 11/18/19 14:45 11/19/19 05:06 Vital Signs Date Time Temp Pulse Resp B/P (MAP) Pulse Ox O2 Delivery O2 Flow Rate FiO2 11/19/19 04:00 3.0 11/19/19 04:00 96.0 60 18 143/64 (90) 93 Room Air I&O- Last 24 Hours up to 6 AM 11/19/19 06:00 Intake Total 472 ml Output Total 2059 ml Balance -1587 ml ODIN LONG MD Nov 19, 2019 07:20
[2019-11-19 20:00] VITALS: BP 130/62
[2019-11-19] MEDS: LATANOPROST 0.005% OPHTH SOLN 2.5 ML OU SCH (21:00)
[2019-11-19] MEDS: LEVEMIR (INSULIN DETEMIR) 1 UNITS/0.01ML SC SCH (21:00)
--- NOTE | 2019-11-19 21:17 | ECHO ---
DATE OF PROCEDURE: 11/19/2019 REFERRING PHYSICIAN: Dr. Victor Manuel Mack INDICATION: Heart failure, unspecified. HEIGHT: 188 cm WEIGHT: 115 kg 2D MEASUREMENTS: Aortic root: 3.3 cm Left atrium: 4.3 cm Aortic annulus: 2.5 cm Left ventricle diastole: 5.2 cm Ventricular septum: 1.23 cm Posterior wall: 1.20 cm Inferior vena cava: 2.0 cm with marked reduction of respiratory variation. DOPPLER MEASUREMENTS: Aortic valve velocity: 122 cm/s LVOT velocity: 86.2 cm/s LVOT VTI: 18.1 cm No aortic regurgitation. No aortic stenosis. Very mild mitral regurgitation. Mitral E velocity: 96.8 cm/s Mitral A velocity: 61.3 cm/s Mitral deceleration time: 349 ms Mild-moderate tricuspid regurgitation. Estimated right ventricle systolic pressure: At least 52 mmHg assuming a right atrial pressure of at least 20 mmHg. MITRAL ANNULAR TISSUE DOPPLER: E prime septal: 6.5 cm/s E prime lateral: 7.6 cm/s DESCRIPTION: Rhythm was sinus. Image quality was technically difficult. The study was performed with the patient supine. CONCLUSIONS: 1. Very mild concentric left ventricle hypertrophy. Normal regional left ventricular (LV) wall motion and wall thickening. Normal LV systolic function. Left ventricular ejection fraction (LVEF) 60% by visual estimate. Grade 2 LV diastolic dysfunction (pseudonormal filling pattern). 2. Suggestive of moderate elevation of estimated right ventricle systolic pressure. Normal right ventricle size and systolic function. Structurally normal appearing tricuspid leaflets. Mild-moderate tricuspid regurgitation. 3. Mild left atrial dilatation. 4. No pericardial effusion. 5. Right pleural effusion. 6. Presence of a Watchman left atrial appendage closure device. 7. Moderately technically difficult echocardiogram.
[2019-11-19] MEDS ORDERED: LEVEMIR (INSULIN DETEMIR) 1 UNITS/0.01ML SC ONE (21:30)
[2019-11-19] MEDS: TAMSULOSIN 0.4 MG CAP PO SCH (21:39)
[2019-11-19] MEDS: SLF 3 ML SYR IV SCH (21:40)
[2019-11-20] VITALS: BP 132/64
[2019-11-20] MEDS: LEVALBUTEROL 1.25 MG/0.5 ML CONCENTRATE NEB NEB SCH ×4 (02:12→19:42)
[2019-11-20] MEDS: KETOROLAC 30 MG/ML 1ML VIAL IV SCH ×4 (03:00→21:50)
[2019-11-20] MEDS: LEVOTHYROXINE 100MCG TABLET (0.1MG) PO SCH (03:56)
[2019-11-20 04:00] VITALS: BP 129/60
[2019-11-20] MEDS: SLF 3 ML SYR IV SCH ×3 (05:09→21:51)
[2019-11-20 05:19] LABS: BASO % 0.3 % (0.0-1.0); EOS # 0.3 10^3/uL (0.0-0.5); EOS % 4.4 % (0.0-3.0); HEMATOCRIT 33.5 % (42.0-52.0); HEMOGLOBIN 10.5 g/dl (13.5-17.5); LYMPH # 0.8 10^3/uL (1.5-5.0); LYMPH % 11.1 % (24.0-44.0); MEAN CORPUSCULAR HEMOGLOBIN 27.3 pg (27.0-33.0); MEAN CORPUSCULAR HGB CONC 31.3 g/dl (32.0-36.5); MEAN CORPUSCULAR VOLUME 87.2 fl (80.0-96.0); MONO # 0.5 10^3/uL (0.0-0.8); MONO % 7.2 % (0.0-5.0); NEUTROPHILS # 5.5 10^3/uL (1.5-8.5); NEUTROPHILS % 76.7 % (36.0-66.0); PLATELET COUNT, AUTOMATED 295 10^3/uL (150-450); RED BLOOD COUNT 3.84 10^6/uL (4.30-6.10); WHITE BLOOD COUNT 7.2 10^3/uL (4.0-10.0)
[2019-11-20 05:47] LABS: BLOOD UREA NITROGEN 12 MG/DL (7-18); CALCIUM LEVEL 8.2 MG/DL (8.8-10.2); CARBON DIOXIDE LEVEL 30 MEQ/L (21-32); CHLORIDE LEVEL 104 MEQ/L (98-107); CREATININE FOR GFR 0.85 MG/DL (0.70-1.30); GLOMERULAR FILTRATION RATE > 60.0 (>49); GLUCOSE, FASTING 110 MG/DL (70-100); POTASSIUM SERUM 3.9 MEQ/L (3.5-5.1); SODIUM LEVEL 139 MEQ/L (136-145)
[2019-11-20] MEDS: HumaLOG INSULIN (NovoLOG) PER UNIT SC SCH ×4 (07:30→21:00)
[2019-11-20] MEDS: FORMOTEROL FUMARATE 20 MCG/2 ML INHALATION SOLUTION (PERFOROMIST) INH SCH ×2 (08:00→19:42)
[2019-11-20] MEDS: TIOTROPIUM INHALER/CAPSULE (SPIRIVA) INH SCH (08:00)
[2019-11-20] MEDS ORDERED: LIDOCAINE 1% MDV 20ML VIAL As Ordered ONE (08:01)
--- NOTE | 2019-11-20 09:54 | IPN ---
DATE: 11/20/2019 Mr. Brewer is in x-ray today undertaking another needle biopsy. The prior needle biopsy did not give us enough tissue to completely characterize the specimen. As he has a chest tube in, I felt that it is prudent with chest tube protection that we undertake another biopsy to gain more tissue. He is breathing well, and he is not offering any complaints. The pain at the chest tube insertion site is well controlled. His vital signs show a maximum temperature (Tmax) of 97.6, with a heart rate that ranges between 72 and 67 in a sinus, respiratory rate of 18 to 20 without the use of accessory muscles, who is 93% saturated on room air and whose blood pressure is ranging between 129/60 to 1410/66. His intake and output for the past 24 hours has been recorded as 770 in and 1309 out for a negativity of 539 mL. He has put out 9 mL from the chest tube yesterday, however 225 mL in the last 8 hours. Weight today is pending. On physical examination, he has bibasilar crackles on either side during inspiration. These occur almost the entire way up the chest. Percussion note is full to the diaphragm. Cardiac exam is without murmurs, clicks, gallops, or rubs. I cannot feel his point of maximum impulse (PMI). S1, S2 are normal. Abdomen: Soft. Nontender. Bowel sounds are positive. There is no hepatomegaly that I can feel through his obesity. There is no costovertebral angle (CVA) tenderness. Extremities: Show 4+ pretibial edema. No calf tenderness. No differential swelling of the upper extremities. Skin: Warm, dry and perfused. Without cyanosis or mottling, including that of the nail beds and knees. Neck is supple. There is no jugular venous distention. No subcutaneous emphysema. Trachea is midline. Mouth: Shows his mucous membranes to be pink and moist. Lips and commissures are without lesions. There is no thrush. Eyes: Show his pupils to be equal and reactive. Extraocular movements intact. Sclerae nonicteric. Neurologic: Shows II-XII intact along with gross motor and gross sensation intact. Gait is not tested. Psychiatric: Shows him to be awake, alert, and oriented times three with appropriate mood and affect and conversational. His white count today is 7.2 with hemoglobin and hematocrit of 10.5 and 33.5, respectively with a platelet count of 295 and stable. Differential shows 76% neutrophils, 11% lymphocytes and 7% monocytes. His chemistries today show normal electrolytes with a BUN and creatinine of 12 and 0.85 with a glucose of 110 and calcium of 8.2. I discussed his pleural fluid yesterday being lymphocytic and mildly exudative. Chest x-ray today after his needle biopsy shows the lung fully expanded to the chest wall. Chest tube is in good place. There is no pneumothorax. I will continue his chest tube on suction. IMPRESSION: 1. Pneumothorax status post lung biopsy right side. 2. Diabetes. 3. Coronary artery disease. 4. Congestive heart failure. 5. Benign prostatic hypertrophy (BPH). 6. Chronic obstructive pulmonary disease (COPD). 7. Obstructive sleep apnea (KHANH). 8. Hyperlipidemia. 9. Gastroesophageal reflux disease. 10. Hypertension. 11. Hypothyroidism. 12. History of atrial fibrillation, now in sinus rhythm. 13. Probable squamous cell carcinoma. PLAN AND DISCUSSION: We will await his pathology. I will keep the chest tube on suction today, and discontinue the suction in the morning if the lung remains to the chest wall. I will plan for removing on Saturday and sending him home on Saturday. His chest x-ray, while it shows the lung fully expanded to the chest wall and there are no infiltrates, he has increased cephalization of vessels consistent with congestive heart failure (CHF). I will therefore do a one-time Lasix order of 60 mg IV in addition to his oral Lasix. I reviewed his [facility] scan from [facility], and he has at least two lesions in the right lower lobe. While his spirometry looks to be compatible with resection, I am not sure with his severe CHF that he would be a candidate. Furthermore, he has two lesions and he may already have metastasis. The next part of his workup would be a CAT scan. His adrenal glands have a normal configuration, although there is a slight bulbous appearance to the left adrenal gland. He also has a ground-glass infiltrative process in the left lower lobe. I do not see pathologic enlarged lymphadenopathy. He may have a hilar node that is enlarged. MITCHELL
--- NOTE | 2019-11-20 09:54 | REP ---
REASON FOR EXAM: Followup. COMPARISON: Multiple, the latest 12/19/2019. A right-sided thoracotomy tube is unchanged. The technique utilized in obtaining the radiograph has magnified the cardiac silhouette and accentuated the interstitial markings. The suspected tiny right apical pneumothorax is unchanged. There are bilateral apical bullous emphysematous changes status quo. The lung dempsey are hypo-expanded today. Bibasilar opacities and diffusely increased interstitial markings are essentially unchanged when the technical differences between the examinations are taken into consideration. No new abnormal opacities have developed. There is no change in the cardiomediastinal silhouette. The cardiac silhouette is magnified by technique. The implantable device is again noted and it is unchanged. There is no change in the osseous structures. IMPRESSION: No significant change as described above. Electronically Signed by Delio Kelley DO 11/20/2019 10:04 A
[2019-11-20] MEDS ORDERED: FUROSEMIDE 100MG/10ML VIAL (J1940) IV ONE (10:00)
[2019-11-20] MEDS: MOM 30ML SUSPENSION UDC PO SCH (10:05)
[2019-11-20] MEDS: ASPIRIN 325 MG TAB PO SCH (10:06)
[2019-11-20] MEDS: DOCUSATE SODIUM 100 MG CAP PO SCH ×2 (10:06→21:00)
[2019-11-20] MEDS: PANTOPRAZOLE 40MG TAB (PROTONIX) PO SCH (10:06)
[2019-11-20] MEDS: atenoloL 25 MG TAB PO SCH (10:07)
[2019-11-20] MEDS: ROSUVASTATIN 10 MG TAB (CRESTOR) PO SCH (10:07)
[2019-11-20] MEDS: FINASTERIDE 5 MG TAB PO SCH (10:07)
[2019-11-20] MEDS: GABAPENTIN 300 MG CAP PO SCH (10:07)
[2019-11-20] MEDS: LOSARTAN 25 MG TAB PO SCH (10:08)
[2019-11-20] MEDS: FUROSEMIDE 80 MG TAB PO SCH (10:08)
[2019-11-20] MEDS: RANOLAZINE 500 MG ER TAB PO SCH ×2 (10:08→21:50)
[2019-11-20] MEDS: FLUTICASONE HFA 110 MCG 12 GM INHALER (FLOVENT) INH SCH ×2 (10:18→19:42)
[2019-11-20 10:30] VITALS: BP 153/67
[2019-11-20 12:00] VITALS: BP 136/66
--- NOTE | 2019-11-20 15:48 | REP ---
CT-guided right lower lobe lung biopsy The procedure is performed by JOSÉ Nguyen, under the direct supervision of Dr. Varner. The risks and benefits of the procedure were explained to the patient and informed consent was obtained both orally and written. Directly prior to the start of the procedure, a formal timeout was done in the exam room. The right lower lobe lung mass was localized using CT guidance. Skin was prepped and draped in the usual sterile fashion. 5 ml of 1% lidocaine 10 mg/ml was used as a local anesthetic. Using CT guidance a 19/20 gauge coaxial needle biopsy system was inserted and advanced into the nodule. 6 core biopsy samples were obtained and sent to the lab. CT images obtained directly after the biopsy showed evidence of pneumothorax. The patient currently has a chest tube in place, and was discharged back to the unit. Reviewed by JOSÉ Montero 11/20/2019 01:05 P Electronically Signed by Ankur Varner MD 11/20/2019 03:40 P
[2019-11-20 16:00] VITALS: BP 145/67
--- NOTE | 2019-11-20 16:01 | IPNPDOC ---
Text Note Date of Service The patient was seen on 11/20/19. NOTE Subjective: -Doing well, no complaints -Had to go down for re-biopsy, went well PHYSICAL EXAMINATION: Vitals : as below Gen: Obese, NAD EYES: PERRLA, EOMI, anicteric ENT: MMM, clear posterior oropharynx LUNGS: Bibasilar crackles, diminished on the right, otherwise without wheezing or rhonchi CARDIAC: , no mrg ABDOMEN: Obese, normoactive, soft, nontender EXTREMITIES: WWP, 2+ pretibial edema SKIN: no lesions or rashes noted PSYCHIATRIC: AOx3 Labs: reviewed. WBC 7.2 hgb 10.5 na 139 K 3.8 Cr 0.85 Assessment: 69 yo man undergoing work up with Dr. Haas for a RLL cavitary lesion who was sent to CT surgery for a needle biopsy who was admitted post needle biopsy c/b a pneumothorax now s/p chest tube placement and was rebiopsied today, doing well. Plan: Pneumothorax: without midline shift or distress. Now s/p chest tube, doing well -s/p anterior chest tube. -pain management per CT surgery RLL cavitary lesions: -s/p biopsy on 11/17, pending pathology and quant gold -s/p 2nd biopsy 11/19 History of Afib: -aspirin 325 mg every day -s/p cardioversion and ablation -monitor on telemetry DM: -continue holding invokana, metformin and start SSI, hypoglycemia protocol, FSBG AC/HS -continue home levemir 18U QHS -consistent carb diet CAD s/p PCI x 2: -continue ASA 325 -continue atenolol and ranexa -continue PRN SLN CHF: -continue atenolol, losartan, daily lasix at home dose of 80mg PO daily Macular degeneration: -patient own med for restasis -Xalatan one drop OU nightly BPH: -continue finasteride 5 mg every day -continue flomax 0.4 mg nightly COPD/asthma -continue in hospital substitute for anoro ellipta -continue in hospital substitute for arnuity ellipta KHANH: -CPAP with peep of 9 per home setting Peripheral neuropathy: -continue gabapentin 300 mg every day HLD: -rosuvastatin 40 mg every day GERD: -pantoprazole 40 mg every day HTN -losartan 25 mg every day -home beta wicho as above Hypothyroidism: -Synthroid 200 mcg every day Insomnia - continue home zolpidem 5 mg nightly DVT ppx: heparin SQ Q12H Diet: consistent carb diet Dispo: PCU with chest tube in place and CT surgery managing as primary team MARCO,Ankita, I+O VS, Ankita I+O Laboratory Tests 11/20/19 04:59 Vital Signs Date Time Temp Pulse Resp B/P (MAP) Pulse Ox O2 Delivery O2 Flow Rate FiO2 11/20/19 12:00 97.3 61 18 136/66 (89) 99 Nasal Cannula 2.0 I&O- Last 24 Hours up to 6 AM 11/20/19 06:00 Intake Total 770 ml Output Total 1525 ml Balance -755 ml ODIN LONG MD November 20, 2019 16:00
[2019-11-20 20:00] VITALS: BP 135/61
[2019-11-20] MEDS: LATANOPROST 0.005% OPHTH SOLN 2.5 ML OU SCH (21:49)
[2019-11-20] MEDS: LEVEMIR (INSULIN DETEMIR) 1 UNITS/0.01ML SC SCH (21:49)
[2019-11-20] MEDS: TAMSULOSIN 0.4 MG CAP PO SCH (21:50)
[2019-11-20] MEDS: zolPIDEM TARTRATE 5 MG TAB PO PRN (23:16)
[2019-11-21] VITALS: BP 143/74
[2019-11-21] MEDS: LEVALBUTEROL 1.25 MG/0.5 ML CONCENTRATE NEB NEB SCH ×4 (00:32→19:27)
[2019-11-21] MEDS: KETOROLAC 30 MG/ML 1ML VIAL IV SCH ×4 (03:54→21:58)
[2019-11-21 04:00] VITALS: BP 121/62
[2019-11-21] MEDS: SLF 3 ML SYR IV SCH ×3 (05:09→21:59)
[2019-11-21] MEDS: LEVOTHYROXINE 100MCG TABLET (0.1MG) PO SCH (05:19)
[2019-11-21] MEDS: PERCOCET 5MG/325MG TAB PO PRN (05:21)
[2019-11-21 05:36] LABS: BASO % 0.4 % (0.0-1.0); EOS # 0.5 10^3/uL (0.0-0.5); EOS % 4.5 % (0.0-3.0); HEMATOCRIT 33.7 % (42.0-52.0); LYMPH # 0.9 10^3/uL (1.5-5.0); LYMPH % 9.3 % (24.0-44.0); MEAN CORPUSCULAR HEMOGLOBIN 28.1 pg (27.0-33.0); MEAN CORPUSCULAR HGB CONC 32.6 g/dl (32.0-36.5); MEAN CORPUSCULAR VOLUME 86.2 fl (80.0-96.0); MONO # 0.9 10^3/uL (0.0-0.8); MONO % 8.9 % (0.0-5.0); NEUTROPHILS # 7.7 10^3/uL (1.5-8.5); NEUTROPHILS % 76.6 % (36.0-66.0); PLATELET COUNT, AUTOMATED 322 10^3/uL (150-450); RED BLOOD COUNT 3.91 10^6/uL (4.30-6.10)
[2019-11-21 06:03] LABS: BLOOD UREA NITROGEN 14 MG/DL (7-18); CALCIUM LEVEL 8.1 MG/DL (8.8-10.2); CARBON DIOXIDE LEVEL 35 MEQ/L (21-32); CHLORIDE LEVEL 102 MEQ/L (98-107); CREATININE FOR GFR 0.82 MG/DL (0.70-1.30); GLOMERULAR FILTRATION RATE > 60.0 (>49); GLUCOSE, FASTING 71 MG/DL (70-100); POTASSIUM SERUM 3.5 MEQ/L (3.5-5.1); SODIUM LEVEL 140 MEQ/L (136-145)
[2019-11-21] MEDS: HumaLOG INSULIN (NovoLOG) PER UNIT SC SCH ×4 (07:04→21:00)
[2019-11-21] MEDS: TIOTROPIUM INHALER/CAPSULE (SPIRIVA) INH SCH (07:26)
[2019-11-21] MEDS: FLUTICASONE HFA 110 MCG 12 GM INHALER (FLOVENT) INH SCH ×2 (07:26→19:35)
[2019-11-21] MEDS: FORMOTEROL FUMARATE 20 MCG/2 ML INHALATION SOLUTION (PERFOROMIST) INH SCH ×2 (07:26→19:27)
[2019-11-21 08:00] VITALS: BP 138/63
[2019-11-21] MEDS: DOCUSATE SODIUM 100 MG CAP PO SCH ×2 (08:18→21:00)
[2019-11-21] MEDS: GABAPENTIN 300 MG CAP PO SCH (08:18)
[2019-11-21] MEDS: PANTOPRAZOLE 40MG TAB (PROTONIX) PO SCH (08:18)
[2019-11-21] MEDS: ASPIRIN 325 MG TAB PO SCH (08:19)
[2019-11-21] MEDS: ROSUVASTATIN 10 MG TAB (CRESTOR) PO SCH (08:19)
[2019-11-21] MEDS: atenoloL 25 MG TAB PO SCH (08:19)
[2019-11-21] MEDS: FINASTERIDE 5 MG TAB PO SCH (08:20)
[2019-11-21] MEDS: LOSARTAN 25 MG TAB PO SCH (08:20)
[2019-11-21] MEDS: RANOLAZINE 500 MG ER TAB PO SCH ×2 (08:20→21:58)
[2019-11-21] MEDS: FUROSEMIDE 80 MG TAB PO SCH (08:20)
[2019-11-21] MEDS: MOM 30ML SUSPENSION UDC PO SCH (08:21)
[2019-11-21] MEDS: HEPARIN SOD (PORCINE) 5000UNITS/ML VIAL (J1644 PER 1000UNITS) SC SCH ×2 (08:21→21:58)
--- NOTE | 2019-11-21 08:53 | REP ---
Clinical: Pneumothorax. Technique: PA and lateral. Comparison: 11/19/2019. Findings: Right apical chest tube in stable position. Small residual right apical pneumothorax along with right lower lobe infiltrate and small pleural reaction again noted. Mediastinum and cardiac silhouette are stable and within normal limits. The lung dempsey demonstrate chronic emphysematous changes as well as large by apical bullae/blebs (left greater than right). Skeletal structures are intact. Impression: 1. Small right apical pneumothorax along with right lower lobe opacity. 2. Stable chronic changes throughout the bilateral lung dempsey including by apical blebs. Electronically Signed by Lalit Bhatia MD 11/21/2019 08:45 A
[2019-11-21] MEDS ORDERED: POTASSIUM CHLORIDE 10 MEQ SR TABLET PO ONE (10:00)
[2019-11-21] MEDS ORDERED: FUROSEMIDE 100MG/10ML VIAL (J1940) IV ONE (11:00)
[2019-11-21 12:00] VITALS: BP 133/63
--- NOTE | 2019-11-21 14:49 | IPN ---
DATE: 11/21/2019 Mr. Brewer is quite comfortable today. He diuresed quite a bit yesterday with the additional Lasix. He has an air leak today, having undergone a repeat biopsy of his mass yesterday morning. His vital signs show a maximum temperature (T max) of 97.7 with a heart rate that ranges between 60 and 84 and is sinus rhythm, respiratory rate of 16 to 18 without the use of accessory muscles who is 97% saturated on room air and whose blood pressure is ranging between 143/74 to 121/62. His intake and output over the past 24 hours has been recorded as 500 in and 2275 out for a negativity of 2200 mL. He has put 655 mL out his chest tube and his weight today is 111.9 kg compared to 115.3 kg yesterday. On physical examination, his lungs still show bibasilar crackles but less yesterday than today. Percussion is full to the diaphragm. Cardiac exam is without murmurs, clicks, gallops or rubs. I cannot feel his point of maximum impulse (PMI). S1, S2 are normal. Abdomen is soft and nontender. Bowel sounds are positive. There is no hepatomegaly that I can feel through his obesity, and there is no costovertebral angle tenderness. Extremities show improvement with his left extremity showing 2+ pretibial edema and his right now down to 3+ pretibial edema. There is no calf tenderness. No differential swelling of the upper extremities. Skin is warm, dry and perfused without cyanosis or mottling, including that of the nail beds and the knees. Neck is supple. There is no jugular venous distention, no subcutaneous emphysema. Trachea is midline. Mouth shows his mucous membranes to be pink and moist. Lips and commissures without lesions. There is no thrush. Eyes show his pupils to be equal and reactive. Extraocular motions intact. Sclerae anicteric. Neurologic shows II-XII intact along with gross motor and gross sensation intact. Gait is not tested. Psychiatric shows him to be awake and alert, oriented times three with appropriate mood and affect and conversational. His white count today is 10.0 with a hemoglobin and hematocrit of 11.0 and 33.7 with a platelet count of 322. Differential shows 76% neutrophils, 9% lymphocytes, 8% monocytes. There are no immature forms. No toxic granulations. His electrolytes are normal with a BUN and creatinine of 14 and 0.82. His total CO2 is 35. Calcium is 8.1 with a glucose of 71. His chest x-ray shows improvement in the vascular congestion and cephalization of vessels. Chest tube is in good place. Costophrenic angles are sharp. Where as yesterday it looked to be pulmonary hemorrhage on the chest x-ray, today the pulmonary hemorrhage in and around the cavitary lesion is resolving. IMPRESSION: 1. Pneumothorax, status post lung biopsy right side. 2. Diabetes. 3. Coronary artery disease. 4. Congestive heart failure. 5. BPH. 6. Chronic obstructive pulmonary disease (COPD). 7. Obstructive sleep apnea (KHANH). 8. Hyperlipidemia. 9. Gastroesophageal reflux disease (GERD). 10. Hypertension. 11. Hypothyroidism. 12. History of atrial fibrillation, now in sinus rhythm. 13. Squamous cell carcinoma, needing further characterization and final pathology pending. PLAN AND DISCUSSION: I have informed the patient of the diagnosis of cancer. He does not seem surprised. His pleural effusion I suspect is more secondary to his heart failure rather than the malignancy. There were no malignant cells seen in the pleural fluid on the cell block. Further cancer workup needs to be done, including a PET scan, to look for metastasis. He already has a known additional nodule in the right lower lobe. I have asked the hospitalist to address his heart failure; however, I will supplement his diuresis again today with 60 of Lasix and also order potassium supplements.
[2019-11-21 16:00] VITALS: BP 142/67
--- NOTE | 2019-11-21 17:14 | IPNPDOC ---
Text Note Date of Service The patient was seen on 11/21/19. NOTE Subjective: -Doing well, no complaints PHYSICAL EXAMINATION: Vitals : as below Gen: Obese, NAD EYES: PERRLA, EOMI, anicteric ENT: MMM, clear posterior oropharynx LUNGS: Bibasilar crackles, otherwise without wheezing or rhonchi CARDIAC: , no mrg ABDOMEN: Obese, normoactive, soft, nontender EXTREMITIES: WWP, 2+ pretibial edema SKIN: no lesions or rashes noted PSYCHIATRIC: AOx3 Labs: reviewed. Quant gold negative K 3.5 (repleted) Otherwise stable CBC and BMP Assessment: 69 yo man undergoing work up with Dr. Haas for a RLL cavitary lesion who was sent to CT surgery for a needle biopsy who was admitted post needle biopsy c/b a pneumothorax now s/p chest tube placement and doing well. Plan: Pneumothorax: without midline shift or distress. Now s/p chest tube to suction, doing well -s/p anterior chest tube. -pain management per CT surgery RLL cavitary lesions: -s/p biopsy on 11/17, pending pathology and quant gold -s/p 2nd biopsy 11/19 History of Afib: -aspirin 325 mg every day -s/p cardioversion and ablation -monitor on telemetry DM: -continue holding invokana, metformin and start SSI, hypoglycemia protocol, FSBG AC/HS -continue home levemir 18U QHS -consistent carb diet CAD s/p PCI x 2: -continue ASA 325 -continue atenolol and ranexa -continue PRN SLN CHF: -continue atenolol, losartan, daily lasix at home dose of 80mg PO daily Macular degeneration: -patient own med for restasis -Xalatan one drop OU nightly BPH: -continue finasteride 5 mg every day -continue flomax 0.4 mg nightly COPD/asthma -continue in hospital substitute for anoro ellipta -continue in hospital substitute for arnuity ellipta KHANH: -CPAP with peep of 9 per home setting Peripheral neuropathy: -continue gabapentin 300 mg every day HLD: -rosuvastatin 40 mg every day GERD: -pantoprazole 40 mg every day HTN -losartan 25 mg every day -home beta wicho as above Hypothyroidism: -Synthroid 200 mcg every day Insomnia - continue home zolpidem 5 mg nightly DVT ppx: heparin SQ Q12H Diet: consistent carb diet Dispo: PCU with chest tube in place and CT surgery managing as primary team Ankita LARA I+O VSAnikta I+O Laboratory Tests 11/21/19 05:23 Vital Signs Date Time Temp Pulse Resp B/P (MAP) Pulse Ox O2 Delivery O2 Flow Rate FiO2 11/21/19 16:00 96.5 60 20 142/67 (92) 100 Room Air 11/20/19 16:00 2.0 I&O- Last 24 Hours up to 6 AM 11/21/19 06:00 Intake Total 800 ml Output Total 2660 ml Balance -1860 ml ODIN LONG MD November 21, 2019 17:14
[2019-11-21 20:00] VITALS: BP 142/64
[2019-11-21] MEDS: zolPIDEM TARTRATE 5 MG TAB PO PRN (21:58)
[2019-11-21] MEDS: TAMSULOSIN 0.4 MG CAP PO SCH (21:58)
[2019-11-21] MEDS: LEVEMIR (INSULIN DETEMIR) 1 UNITS/0.01ML SC SCH (21:58)
[2019-11-21] MEDS: LATANOPROST 0.005% OPHTH SOLN 2.5 ML OU SCH (21:59)
[2019-11-22] VITALS: BP 139/65
[2019-11-22] MEDS: LEVALBUTEROL 1.25 MG/0.5 ML CONCENTRATE NEB NEB SCH ×4 (02:00→20:00)
[2019-11-22] MEDS: KETOROLAC 30 MG/ML 1ML VIAL IV SCH ×4 (02:05→21:10)
[2019-11-22 03:57] LABS: BASO % 0.4 % (0.0-1.0); EOS # 0.5 10^3/uL (0.0-0.5); EOS % 5.2 % (0.0-3.0); HEMATOCRIT 33.5 % (42.0-52.0); HEMOGLOBIN 10.6 g/dl (13.5-17.5); LYMPH # 0.9 10^3/uL (1.5-5.0); MEAN CORPUSCULAR HEMOGLOBIN 27.5 pg (27.0-33.0); MEAN CORPUSCULAR HGB CONC 31.6 g/dl (32.0-36.5); MONO # 0.5 10^3/uL (0.0-0.8); MONO % 5.5 % (0.0-5.0); NEUTROPHILS # 7.4 10^3/uL (1.5-8.5); NEUTROPHILS % 78.6 % (36.0-66.0); PLATELET COUNT, AUTOMATED 305 10^3/uL (150-450); RED BLOOD COUNT 3.85 10^6/uL (4.30-6.10); WHITE BLOOD COUNT 9.4 10^3/uL (4.0-10.0)
[2019-11-22 04:00] VITALS: BP 128/60
[2019-11-22 04:21] LABS: BLOOD UREA NITROGEN 16 MG/DL (7-18); CALCIUM LEVEL 8.1 MG/DL (8.8-10.2); CARBON DIOXIDE LEVEL 32 MEQ/L (21-32); CHLORIDE LEVEL 103 MEQ/L (98-107); CREATININE FOR GFR 1.01 MG/DL (0.70-1.30); GLOMERULAR FILTRATION RATE > 60.0 (>49); GLUCOSE, FASTING 104 MG/DL (70-100); POTASSIUM SERUM 3.6 MEQ/L (3.5-5.1); SODIUM LEVEL 139 MEQ/L (136-145)
[2019-11-22] MEDS: SLF 3 ML SYR IV SCH ×3 (05:38→21:15)
[2019-11-22] MEDS: LEVOTHYROXINE 100MCG TABLET (0.1MG) PO SCH (05:43)
[2019-11-22] MEDS: HumaLOG INSULIN (NovoLOG) PER UNIT SC SCH ×4 (07:30→21:00)
[2019-11-22 08:00] VITALS: BP 148/63
--- NOTE | 2019-11-22 08:16 | REP ---
Clinical: Pneumothorax. Technique: PA and lateral. Comparison: 11/21/2019. Findings: Right-sided chest tube again identified. Small residual right apical pneumothorax and right basilar opacities suggesting elements of atelectasis and small pleural fluid are essentially unchanged. Left hemithorax is stable with prominent bullae/blebs noted in the left apex. Mediastinum and cardiac silhouette are within normal limits. The skeletal structures are intact. Impression: 1. No significant change from prior examination with continued small right apical pneumothorax and right basilar opacity. Electronically Signed by Lalit Bhatia MD 11/22/2019 08:09 A
[2019-11-22] MEDS: FLUTICASONE HFA 110 MCG 12 GM INHALER (FLOVENT) INH SCH ×2 (08:50→20:03)
[2019-11-22] MEDS: FORMOTEROL FUMARATE 20 MCG/2 ML INHALATION SOLUTION (PERFOROMIST) INH SCH ×2 (08:50→20:03)
[2019-11-22] MEDS: TIOTROPIUM INHALER/CAPSULE (SPIRIVA) INH SCH (08:50)
[2019-11-22] MEDS ORDERED: POTASSIUM CHLORIDE 10 MEQ SR TABLET PO ONE ×2 (09:00→10:30)
[2019-11-22] MEDS: HEPARIN SOD (PORCINE) 5000UNITS/ML VIAL (J1644 PER 1000UNITS) SC SCH ×2 (10:00→21:10)
[2019-11-22] MEDS: FINASTERIDE 5 MG TAB PO SCH (10:01)
[2019-11-22] MEDS: GABAPENTIN 300 MG CAP PO SCH (10:02)
[2019-11-22] MEDS: DOCUSATE SODIUM 100 MG CAP PO SCH ×2 (10:02→21:09)
[2019-11-22] MEDS: atenoloL 25 MG TAB PO SCH (10:03)
[2019-11-22] MEDS: PANTOPRAZOLE 40MG TAB (PROTONIX) PO SCH (10:03)
[2019-11-22] MEDS: LOSARTAN 25 MG TAB PO SCH (10:03)
[2019-11-22] MEDS: ROSUVASTATIN 10 MG TAB (CRESTOR) PO SCH (10:04)
[2019-11-22] MEDS: FUROSEMIDE 80 MG TAB PO SCH (10:04)
[2019-11-22] MEDS: RANOLAZINE 500 MG ER TAB PO SCH ×2 (10:05→21:09)
[2019-11-22] MEDS: ASPIRIN 325 MG TAB PO SCH (10:05)
[2019-11-22] MEDS: MOM 30ML SUSPENSION UDC PO SCH (10:05)
[2019-11-22] MEDS ORDERED: FUROSEMIDE 40MG/4ML VIAL (J1940) IV ONE (11:00)
[2019-11-22 12:00] VITALS: BP 164/74
--- NOTE | 2019-11-22 12:09 | IPNPDOC ---
Text Note Date of Service The patient was seen on 11/22/19. NOTE Subjective: -Doing well, no complaints PHYSICAL EXAMINATION: Vitals : as below Gen: Obese, NAD EYES: PERRLA, EOMI, anicteric ENT: MMM, clear posterior oropharynx LUNGS: Stable bibasilar crackles, otherwise without wheezing or rhonchi, chest tube with suction of now, minimal output CARDIAC: RRR, no mrg ABDOMEN: Obese, normoactive, soft, nontender EXTREMITIES: WWP SKIN: no lesions or rashes noted PSYCHIATRIC: AOx3 Labs: reviewed. Quant gold negative K 3.6 stable Hgb 10.6 WBC 9.4 Assessment: 69 yo man undergoing work up with Dr. Haas for a RLL cavitary lesion who was sent to CT surgery for a needle biopsy who was admitted post needle biopsy c/b a pneumothorax now s/p chest tube placement and doing well, with CT planning for tube removal. Plan: Pneumothorax: without midline shift or distress. Now s/p chest tube to suction, doing well -s/p anterior chest tube, with plan for dc per Dr. Mack -pain management per CT surgery RLL cavitary lesions: -s/p biopsy on 11/17, pending pathology, prelim read +malignancy. quant gold negative -s/p 2nd biopsy 11/19 History of Afib: -aspirin 325 mg every day -s/p cardioversion and ablation -monitor on telemetry DM: -continue holding invokana, metformin and start SSI, hypoglycemia protocol, FSBG AC/HS -continue home levemir 18U QHS -consistent carb diet CAD s/p PCI x 2: -continue ASA 325 -continue atenolol and ranexa -continue PRN SLN CHF: -continue atenolol, losartan, daily lasix at home dose of 80mg PO daily Macular degeneration: -patient own med for restasis -Xalatan one drop OU nightly BPH: -continue finasteride 5 mg every day -continue flomax 0.4 mg nightly COPD/asthma -continue in hospital substitute for anoro ellipta -continue in hospital substitute for arnuity ellipta KHANH: -CPAP with peep of 9 per home setting Peripheral neuropathy: -continue gabapentin 300 mg every day HLD: -rosuvastatin 40 mg every day GERD: -pantoprazole 40 mg every day HTN -losartan 25 mg every day -home beta wicho as above Hypothyroidism: -Synthroid 200 mcg every day Insomnia - continue home zolpidem 5 mg nightly DVT ppx: heparin SQ Q12H Diet: consistent carb diet Dispo: PCU with chest tube and CT surgery managing as primary team Ankita LARA, I+O VS, Ankita I+O Laboratory Tests 11/22/19 03:19 Vital Signs Date Time Temp Pulse Resp B/P (MAP) Pulse Ox O2 Delivery O2 Flow Rate FiO2 11/22/19 04:00 98.2 69 17 128/60 (82) 95 Room Air 11/20/19 16:00 2.0 I&O- Last 24 Hours up to 6 AM 11/22/19 06:00 Intake Total 920 ml Output Total 1150 ml Balance -230 ml ODIN LONG MD November 22, 2019 08:31
[2019-11-22 16:00] VITALS: BP 136/67
[2019-11-22 20:00] VITALS: BP 137/62
[2019-11-22] MEDS: LATANOPROST 0.005% OPHTH SOLN 2.5 ML OU SCH (21:09)
[2019-11-22] MEDS: TAMSULOSIN 0.4 MG CAP PO SCH (21:09)
[2019-11-22] MEDS: LEVEMIR (INSULIN DETEMIR) 1 UNITS/0.01ML SC SCH (21:11)
[2019-11-22] MEDS: zolPIDEM TARTRATE 5 MG TAB PO PRN (21:14)
[2019-11-23] VITALS (7 sets, daily range): BP systolic 113–135; BP diastolic 54–68
[2019-11-23] MEDS: LEVALBUTEROL 1.25 MG/0.5 ML CONCENTRATE NEB NEB SCH ×4 (02:00→20:21)
[2019-11-23] MEDS: KETOROLAC 30 MG/ML 1ML VIAL IV SCH ×2 (03:59→09:13)
[2019-11-23 04:55] LABS: BASO % 0.4 % (0.0-1.0); EOS # 0.5 10^3/uL (0.0-0.5); HEMOGLOBIN 11.4 g/dl (13.5-17.5); LYMPH # 1.1 10^3/uL (1.5-5.0); LYMPH % 10.6 % (24.0-44.0); MEAN CORPUSCULAR HEMOGLOBIN 27.3 pg (27.0-33.0); MEAN CORPUSCULAR HGB CONC 31.7 g/dl (32.0-36.5); MEAN CORPUSCULAR VOLUME 86.3 fl (80.0-96.0); MONO # 0.8 10^3/uL (0.0-0.8); MONO % 7.5 % (0.0-5.0); NEUTROPHILS # 7.9 10^3/uL (1.5-8.5); NEUTROPHILS % 76.2 % (36.0-66.0); PLATELET COUNT, AUTOMATED 315 10^3/uL (150-450); RED BLOOD COUNT 4.17 10^6/uL (4.30-6.10); WHITE BLOOD COUNT 10.3 10^3/uL (4.0-10.0)
[2019-11-23 05:16] LABS: BLOOD UREA NITROGEN 19 MG/DL (7-18); CALCIUM LEVEL 8.2 MG/DL (8.8-10.2); CARBON DIOXIDE LEVEL 33 MEQ/L (21-32); CHLORIDE LEVEL 103 MEQ/L (98-107); CREATININE FOR GFR 0.97 MG/DL (0.70-1.30); GLOMERULAR FILTRATION RATE > 60.0 (>49); GLUCOSE, FASTING 90 MG/DL (70-100); POTASSIUM SERUM 4.1 MEQ/L (3.5-5.1); SODIUM LEVEL 141 MEQ/L (136-145)
[2019-11-23] MEDS: SLF 3 ML SYR IV SCH ×3 (06:14→20:28)
[2019-11-23] MEDS: LEVOTHYROXINE 100MCG TABLET (0.1MG) PO SCH (06:14)
[2019-11-23] MEDS: FORMOTEROL FUMARATE 20 MCG/2 ML INHALATION SOLUTION (PERFOROMIST) INH SCH ×2 (07:23→20:21)
[2019-11-23] MEDS: TIOTROPIUM INHALER/CAPSULE (SPIRIVA) INH SCH (07:23)
[2019-11-23] MEDS: FLUTICASONE HFA 110 MCG 12 GM INHALER (FLOVENT) INH SCH ×2 (07:25→20:20)
[2019-11-23] MEDS: HumaLOG INSULIN (NovoLOG) PER UNIT SC SCH ×4 (07:30→20:26)
[2019-11-23] MEDS: MOM 30ML SUSPENSION UDC PO SCH (09:00)
[2019-11-23] MEDS: FINASTERIDE 5 MG TAB PO SCH (09:09)
[2019-11-23] MEDS: ASPIRIN 325 MG TAB PO SCH (09:09)
[2019-11-23] MEDS: GABAPENTIN 300 MG CAP PO SCH (09:09)
[2019-11-23] MEDS: ROSUVASTATIN 10 MG TAB (CRESTOR) PO SCH (09:09)
[2019-11-23] MEDS: LOSARTAN 25 MG TAB PO SCH (09:10)
[2019-11-23] MEDS: atenoloL 25 MG TAB PO SCH (09:11)
[2019-11-23] MEDS: HEPARIN SOD (PORCINE) 5000UNITS/ML VIAL (J1644 PER 1000UNITS) SC SCH ×2 (09:11→20:27)
[2019-11-23] MEDS: FUROSEMIDE 80 MG TAB PO SCH (09:11)
[2019-11-23] MEDS: DOCUSATE SODIUM 100 MG CAP PO SCH ×2 (09:11→20:26)
[2019-11-23] MEDS: PANTOPRAZOLE 40MG TAB (PROTONIX) PO SCH (09:11)
[2019-11-23] MEDS: RANOLAZINE 500 MG ER TAB PO SCH ×2 (09:14→20:27)
--- NOTE | 2019-11-23 09:28 | REP ---
Chest x-ray: Two views. History: Pneumothorax. Comparison chest x-ray: November 22, 2019. Findings: Monitoring electrodes are seen overlying the chest. A right pleural drainage catheter is noted in place. There is a tiny sliver of air adjacent to the chest tube at the right apex. There is an air-fluid level in a cavitary lesion in the right base. No new infiltrate is seen. Bullous changes are noted in the apices left greater than right. On lateral film there is slight blunting of the posterior pleural angles bilaterally. Electronically Signed by Kiet Gage MD 11/23/2019 09:19 A
--- NOTE | 2019-11-23 10:02 | IPN ---
DATE: 11/22/2019 Mr. Brewer is doing well today. There is no air leak today. He is breathing better, and he has less lower extremity edema. His vital signs show a maximum temperature (Tmax) of 98.2 with a heart rate that ranges between 76 and 60 in a sinus rhythm, respiratory rate of 17-20 without the use of accessory muscles who is 95-100% saturated on room air and whose blood pressure is ranging between 128/60 to 148/63.. His intake and output for the past 24 hours has been recorded as 1220 in and 1220 out for equality. Weight today is 110.5 kg compared to 111.9 kg yesterday. He has put out 220 mL out the chest tube, and there is no air leak. This is significant less than 655 he put out the day before. On physical examination, he has equal breath sounds but markedly decreased on either side, but equally so. Percussion is full to the diaphragm. I hear no wheezes or rhonchi, but there are a few inspiratory crackles at the bases. Cardiac exam is without murmurs, clicks, gallops or rubs. I cannot feel his point of maximum impulse (PMI). S1, S2 are normal. Abdomen is soft and nontender. Bowel sounds are positive. There is no hepatomegaly that I can feel through his obesity. There is no costovertebral angle (CVA) tenderness. Extremities show the right to have 1-2+ edema and the left to have trace to 1+ edema. There is no calf tenderness. No differential swelling of the upper extremities. Skin is warm, dry and perfused without cyanosis or mottling, including that of the nail beds and the knees. Neck is supple. There is no jugular venous distention. No subcutaneous emphysema. Trachea is midline. Mouth shows his mucous membranes to be pink and moist. Lips and commissures without lesions. There is no thrush. Eyes show his pupils to be equal and reactive. Extraocular motions intact. Sclerae anicteric. Neurologic shows II-XII intact along with gross motor and gross sensation intact. Psychiatric shows him to be awake and alert, oriented times three with appropriate mood and affect and conversational. His white count today is 9.4 with hemoglobin and hematocrit 10.6 and 33.5 and a platelet count 305. Differential shows 78% neutrophils, 10% lymphocytes, 5% monocytes. There are no immature forms. No toxic granulations. His electrolytes are normal with a BUN and creatinine of 16 and 1.01, up from 14 and 0.82, no doubt secondary to the diuresis. Glucose is 104 with calcium 8.1. Potassium is 3.6. His chest x-ray today shows his lung full expanded to the chest wall. Costophrenic angles are sharp. The cavitary lesion can be clearly seen in the lower lobe. Cephalization of vessels is less marked and his cardiac silhouette is near normal. Echocardiogram shows a systolic ejection fraction of 60%. He has increased right ventricular systolic pressure and pulmonary hypertension of at least 52 mmHg with a right atrial pressure of 20 mmHg. He has grade 2 diastolic dysfunction. We are still awaiting the final pathology from Saturday. IMPRESSION: 1. Pneumothorax, status post lung biopsy right side. 2. Diabetes. 3. Coronary artery disease. 4. Congestive heart failure (CHF). 5. BPH. 6. Chronic obstructive pulmonary disease (COPD). 7. Obstructive sleep apnea (KHANH). 8. Hyperlipidemia. 9. Gastroesophageal reflux disease (GERD). 10. Hypertension. 11. Hypothyroidism. 12. History of atrial fibrillation, now in sinus rhythm. 13. Squamous cell carcinoma, awaiting final pathology. PLAN AND DISCUSSION: As he has no air leak, I will discontinue his chest tube from suction. I am very gratified with his diuresis and I will continue that with an additional 40 mg IV of Lasix today. His BUN and creatinine are starting to bump. As noted yesterday, his further cancer workup needs to be done to include a PET scan and full pulmonary function tests (PFTs) including diffusion. These can all be done on an outpatient basis. Once obtaining that additional information, we can make a recommendation as to which way to treat his cancer.
--- NOTE | 2019-11-23 11:54 | IPNPDOC ---
Text Note Date of Service The patient was seen on 11/23/19. NOTE Subjective: Doing well, no complaints PHYSICAL EXAMINATION: Vitals : as below Gen: Obese, NAD EYES: PERRLA, EOMI, anicteric ENT: MMM, clear posterior oropharynx LUNGS: Stable bibasilar crackles, otherwise without wheezing or rhonchi, chest tube off suction CARDIAC: RRR, no mrg ABDOMEN: Obese, normoactive, soft, nontender EXTREMITIES: WWP SKIN: no lesions or rashes noted PSYCHIATRIC: AOx3 Labs: reviewed. Assessment and Plan: 69 yo man undergoing work up with Dr. Haas for a RLL cavitary lesion who was sent to CT surgery for a needle biopsy who was admitted post needle biopsy with a pneumothorax now s/p chest tube placement and doing well, with CT surgery plan dulce for tube removal. Pneumothorax status post lung biopsy right side s/p chest tube, with plan for dc per Dr. Mack pain management per CT surgery RLL cavitary lesions: Malignant s/p biopsy on 11/17, Non small cell cancer favors squamous cell cancer, poorly differentiated. s/p 2nd biopsy 11/19 pending. History of Afib: aspirin 325 mg every day s/p cardioversion and ablation in the past now in sinus rhythm DM: continue holding invokana, metformin and start SSI, hypoglycemia protocol, FSBG AC/HS continue home levemir consistent carb diet CAD s/p PCI x 2: continue ASA 325 atenolol and ranexa continue PRN SLN CHF: continue atenolol, losartan, daily lasix at home dose of 80mg PO daily Macular degeneration: patient own med for restasis Xalatan one drop OU nightly BPH: continue finasteride 5 mg every day continue flomax 0.4 mg nightly COPD/asthma wit emphysema continue in hospital substitute for anoro ellipta -continue in hospital substitute for arnuity ellipta KHANH: CPAP with peep of 9 per home setting Peripheral neuropathy: continue gabapentin 300 mg every day HLD: rosuvastatin 40 mg every day GERD: pantoprazole 40 mg every day HTN losartan and atenolol Hypothyroidism: Synthroid 200 mcg every day Insomnia continue home zolpidem 5 mg nightly DVT ppx: heparin SQ Q12H Diet: consistent carb diet VS,Fishbone, I+O VS, Fishbone, I+O Laboratory Tests 11/23/19 04:45 Vital Signs Date Time Temp Pulse Resp B/P (MAP) Pulse Ox O2 Delivery O2 Flow Rate FiO2 11/23/19 09:11 77 127/58 11/23/19 08:00 98.2 17 97 Room Air 11/20/19 16:00 2.0 I&O- Last 24 Hours up to 6 AM 11/23/19 05:59 Intake Total 1820 ml Output Total 1230 ml Balance 590 ml KEREN FAYE MD November 23, 2019 11:54
[2019-11-23] MEDS: TAMSULOSIN 0.4 MG CAP PO SCH (20:27)
[2019-11-23] MEDS: LEVEMIR (INSULIN DETEMIR) 1 UNITS/0.01ML SC SCH (20:28)
[2019-11-23] MEDS: LATANOPROST 0.005% OPHTH SOLN 2.5 ML OU SCH (20:28)
[2019-11-23] MEDS: PERCOCET 5MG/325MG TAB PO PRN (20:29)
[2019-11-24] VITALS: BP 131/60
[2019-11-24] MEDS: LEVALBUTEROL 1.25 MG/0.5 ML CONCENTRATE NEB NEB SCH ×2 (01:33→07:32)
[2019-11-24 04:00] VITALS: BP 125/59
[2019-11-24] MEDS: LEVOTHYROXINE 100MCG TABLET (0.1MG) PO SCH (05:09)
[2019-11-24] MEDS: SLF 3 ML SYR IV SCH (05:10)
[2019-11-24 05:17] LABS: BASO # 0.1 10^3/uL (0.0-0.2); BASO % 0.5 % (0.0-1.0); EOS # 0.5 10^3/uL (0.0-0.5); EOS % 5.1 % (0.0-3.0); HEMATOCRIT 35.8 % (42.0-52.0); HEMOGLOBIN 11.3 g/dl (13.5-17.5); LYMPH # 1.2 10^3/uL (1.5-5.0); LYMPH % 12.4 % (24.0-44.0); MEAN CORPUSCULAR HEMOGLOBIN 27.2 pg (27.0-33.0); MEAN CORPUSCULAR HGB CONC 31.6 g/dl (32.0-36.5); MEAN CORPUSCULAR VOLUME 86.3 fl (80.0-96.0); MONO # 0.7 10^3/uL (0.0-0.8); MONO % 7.6 % (0.0-5.0); NEUTROPHILS # 7.1 10^3/uL (1.5-8.5); NEUTROPHILS % 74.1 % (36.0-66.0); PLATELET COUNT, AUTOMATED 330 10^3/uL (150-450); RED BLOOD COUNT 4.15 10^6/uL (4.30-6.10); WHITE BLOOD COUNT 9.6 10^3/uL (4.0-10.0)
[2019-11-24 05:33] LABS: BLOOD UREA NITROGEN 19 MG/DL (7-18); CALCIUM LEVEL 8.4 MG/DL (8.8-10.2); CARBON DIOXIDE LEVEL 33 MEQ/L (21-32); CHLORIDE LEVEL 101 MEQ/L (98-107); CREATININE FOR GFR 1.01 MG/DL (0.70-1.30); GLOMERULAR FILTRATION RATE > 60.0 (>49); GLUCOSE, FASTING 86 MG/DL (70-100); POTASSIUM SERUM 3.8 MEQ/L (3.5-5.1); SODIUM LEVEL 138 MEQ/L (136-145)
[2019-11-24] MEDS: HumaLOG INSULIN (NovoLOG) PER UNIT SC SCH (07:30)
[2019-11-24] MEDS: FORMOTEROL FUMARATE 20 MCG/2 ML INHALATION SOLUTION (PERFOROMIST) INH SCH (07:31)
[2019-11-24] MEDS: TIOTROPIUM INHALER/CAPSULE (SPIRIVA) INH SCH (07:32)
[2019-11-24] MEDS: FLUTICASONE HFA 110 MCG 12 GM INHALER (FLOVENT) INH SCH (07:32)
[2019-11-24 08:00] VITALS: BP 144/63
--- NOTE | 2019-11-24 08:10 | IPN ---
DATE: 11/23/2019 Mr. Brewer is breathing well today. His pain is being well controlled at the chest tube insertion site. His chest x-ray shows his lung fully expanded to the chest wall and there is no air leak. His vital signs show a maximum temperature (Tmax) of 98.5 with a heart rate that ranges between 77 and 67 in a sinus rhythm, a respiratory rate of 17-20 without the use of accessory muscles, who is 96-97% saturated on room air, and whose blood pressure is ranging between 127/58 to 123/68. His intake and output for the past 24 hours has been recorded as 1820 in and 1190 out for a positivity of 630 mL. He put out 190 mL from the chest tube. He weighs 110.8 kg today compared to 110.5 kg yesterday. On physical examination, his lungs show some faint inspiratory rales at the end of inspiration in the right lower lobe. The left side is clear with normal vesicular sounds. Percussion notes are full to the diaphragm. Cardiac exam is without murmurs, clicks, gallops or rubs. I cannot feel his point of maximum impulse (PMI). S1, S2 are normal. Abdomen is soft and nontender. Bowel sounds are positive. There is no hepatomegaly. There is no costovertebral angle (CVA) tenderness. Extremities show marked improvement, now with trace pretibial edema on both sides. There is no calf tenderness. No differential swelling of the upper extremities. Skin is warm, dry and perfused without cyanosis or mottling, including that of the nail beds and the knees. Neck is supple. There is no jugular venous distention. No subcutaneous emphysema. Trachea is midline. Mouth shows his mucous membranes to be pink and moist. Lips and commissures without lesions. There is no thrush. Eyes show his pupils to be equal and reactive. Extraocular motions intact. Sclerae anicteric. Neurologic shows II-XII intact along with gross motor and gross sensation intact. Gait is not tested. Psychiatric shows him to be awake and alert, oriented times three with appropriate mood and affect and conversational. His white count today is 10.3 with hemoglobin and hematocrit 11.4 and 36.0, up from 10.6 and 33.5. Platelet count is 315 and stable. Differential shows 76% neutrophils, 10% lymphocytes, 7% monocytes. There are no immature forms and no toxic granulations. His chemistries are normal with a marginally high total CO2 of 33 and with a BUN and creatinine of 19 and 0.97, improved from 16 and 1.01 yesterday. Glucose is 90 with a calcium of 8.2. His chest x-ray today shows his lung full expanded to the chest wall. Chest tube in good place. I see no infiltrates. His costophrenic angles are sharp. Subcutaneous emphysema is gone. IMPRESSION: 1. Pneumothorax, status post lung biopsy right side. 2. Diabetes. 3. Coronary artery disease. 4. Congestive heart failure (CHF). 5. Benign prostatic hypertrophy (BPH). 6. Chronic obstructive pulmonary disease (COPD). 7. Obstructive sleep apnea (KHANH). 8. Hyperlipidemia. 9. Gastroesophageal reflux disease (GERD). 10. Hypertension. 11. Hypothyroidism. 12. History of atrial fibrillation, now in sinus rhythm. 13. Poorly differentiated squamous cell carcinoma. Markers and genetic studies are pending. PLAN AND DISCUSSION: It is obvious on the second biopsy it was more tissue and we can make an accurate diagnosis. They will be sent for genetic studies. The tumor cells are positive for CK5/6 and p63 and negative for TTF1. As we now know the proper diagnosis and genetic markers are pending, I will inform his oncologist, Dr. Melodie Geller, in [place]. His congestive heart failure symptomatology is vastly improved, but I will give him one more dose of IV Lasix today. Will plan for discharge in the morning after a chest x-ray. As noted before, he will need a PET scan and proper PFTs with diffusion capacities to recommend a treatment decision.
--- NOTE | 2019-11-24 08:32 | REP ---
Clinical: History of pneumothorax. Technique: PA and lateral. Comparison: 11/23/2019. Findings: Right chest tube has been removed. No definite residual pneumothorax identified. Right basilar opacities suggesting atelectasis and small pleural effusion remains stable. Very subtle left basilar pleural reaction cannot be excluded as well. Lung dempsey demonstrate chronic interstitial changes as well as significant biapical blebs. The mediastinum and cardiac silhouette is within normal limits. Skeletal structures are intact. Impression: 1. Right chest tube removed and no significant residual pneumothorax identified. 2. Bibasilar opacities (right greater than left) similar to prior examination. 3. Stable chronic changes including biapical blebs. Electronically Signed by Lalit Bhatia MD 11/24/2019 08:24 A
[2019-11-24] MEDS: GABAPENTIN 300 MG CAP PO SCH (08:38)
[2019-11-24] MEDS: atenoloL 25 MG TAB PO SCH (08:38)
[2019-11-24] MEDS: ASPIRIN 325 MG TAB PO SCH (08:38)
[2019-11-24] MEDS: FINASTERIDE 5 MG TAB PO SCH (08:38)
[2019-11-24] MEDS: ROSUVASTATIN 10 MG TAB (CRESTOR) PO SCH (08:38)
[2019-11-24] MEDS: RANOLAZINE 500 MG ER TAB PO SCH (08:38)
[2019-11-24] MEDS: HEPARIN SOD (PORCINE) 5000UNITS/ML VIAL (J1644 PER 1000UNITS) SC SCH (08:39)
[2019-11-24] MEDS: LOSARTAN 25 MG TAB PO SCH (08:39)
[2019-11-24] MEDS: FUROSEMIDE 80 MG TAB PO SCH (08:39)
[2019-11-24] MEDS: DOCUSATE SODIUM 100 MG CAP PO SCH (08:40)
[2019-11-24] MEDS: MOM 30ML SUSPENSION UDC PO SCH (08:40)
[2019-11-24] MEDS: PANTOPRAZOLE 40MG TAB (PROTONIX) PO SCH (08:44)
--- NOTE | 2019-11-24 12:00 | DSES ---
DATE OF ADMISSION: 11/18/2019 DATE OF DISCHARGE: 11/24/2019 DISCHARGE DIAGNOSES: 1. Pneumothorax status post lung biopsy right side. 2. Poorly differentiated squamous cell carcinoma, markers and genetic studies pending. 3. Diabetes. 4. Coronary artery disease. 5. Congestive heart failure. 6. Benign prostatic hypertrophy. 7. Chronic obstructive pulmonary disease. 8. Obstructive sleep apnea. 9. Hyperlipidemia. 10. Gastroesophageal reflux disease. 11. Hypertension. 12. Hypothyroidism. 13. History of atrial fibrillation. HOSPITAL COURSE: The patient is a 69-year-old, white male who was referred for a lung biopsy of a cavitary lesion of the right lower lobe. He had a pleural effusion which had been tapped a few days prior to his lung biopsy. It looked to be a transudative effusion. It was not malignant. He has known congestive heart failure and most particularly right heart failure. After the biopsy, he had a 30% pneumothorax and therefore an anterior superior chest tube was placed. This resolved the pneumothorax and there was no air leak. Initial biopsy results came back with scant tissue, but sufficient to make a probable diagnosis of squamous cell carcinoma. Nonetheless, there is not enough tissue for genetic markers and he already had a chest tube in I recommended that we rebiopsy him with his lung protected with the chest tube on suction. The biopsy was subsequently undertaken and showed poorly differentiated squamous cell carcinoma with enough tissue for genetic and molecular markers. His other major problem in the hospital was generalized edema and increased chest tube output. Echocardiogram showed him to have moderate to severe pulmonary hypertension, most likely secondary to his chronic obstructive pulmonary disease. He had a left ventricular ejection fraction of 60% with diastolic dysfunction. There was also mitral regurgitation. He was vigorously diuresed with almost near resolution of his 4+ pretibial edema. The chest tube was removed after his second biopsy on the third post biopsy day. He initially had an air leak on the first biopsy day. The chest tube was taken off suction on the second biopsy day. He had a maximum daily output of 660 mL, which markedly decreased with diuresis. He is being sent home today on his discharge medications which include ProAir 2 puffs four times a day as needed shortness of breath, aspirin 325 mg daily, atenolol 25 mg daily, Invokana 300 mg daily, Restasis one drop both eyes twice a day, finasteride 5 mg daily, Arnuity Ellipta one puff daily, fluconazole one spray each nares daily, Lasix 80 mg daily, gabapentin 300 mg daily, Vicodin 10/325 every 4 hours as needed pain, Insulin Glargine 18 units subcutaneous at bedtime, Xalatan one drop both eyes at bedtime, Synthroid 200 mg daily, Victoza 1.2 mg subcutaneous daily, Losartan 25 mg daily, metformin 850 mg by mouth three times a day, nitroglycerin 0.5 mg sublingually as needed chest pain, pantoprazole 40 mg daily, Ranexa 500 mg twice a day, rosuvastatin 40 mg daily, Flomax 0.4 mg at bedtime, trimethoprim 100 mg daily, Anoro Ellipta 62.5/25 mg one puff daily, and Zolpidem 5 mg as needed sleep at bedtime. I have notified his oncologist, Dr. Melodie Geller of the [facility] of his diagnosis. He may or may not be a surgical candidate depending upon his cardiac function and whether he is actually resectable. Dr. Geller is going to obtain a PET scan. He will also need complete pulmonary function tests to include diffusion capacities. I have recommended to Mr. Brewer that he seek primary care with a real doctor and not a physician school health assistant as his heart failure and other medical diseases are rather complex and he needs the active participation of a fully qualified physician. I will not see him in followup unless Dr. Geller refers him for surgical followup. His chest tube will be open to air and he may take showers. His discharge hemoglobin/hematocrit (H/H) are 11.3 and 35.8 with a discharge white count of 9.5 and a platelet count of 330. Discharge chemistries show a marginally elevated total CO2 of 33 with a BUN and creatinine of 19 and 1.01 and a calcium of 8.4. His chest x-ray shows his lung fully expanded to the chest wall. There is no residual pneumothorax and there is no subcutaneous emphysema. Costophrenic angles are sharp and the cavitary lesion can be seen in the right lower lobe adjacent to the diaphragm. Cephalization of the vessels has resolved and his heart size looks to be normal. edited: 11/25/2019 [id number] tkf MITCHELL
== END 2019-11-24 12:20 | disposition home or self-care (01) | DRG 200 ==
LOC: M IRPRO 07:01 → M PCU 14:10
PROVIDERS: ADMIT Thoracic Surgery (Cardiothoracic Vascular Surgery); ATTEND Thoracic Surgery (Cardiothoracic Vascular Surgery)
PROC: 0BBF3ZX Excision of Right Lower Lung Lobe, Percutaneous Approach, Diagnostic (ICD-10-PCS; principal; 2019-11-18 08:00)
PROC: 0BBF3ZX Excision of Right Lower Lung Lobe, Percutaneous Approach, Diagnostic (ICD-10-PCS; 2019-11-20)
DX: J95.811 Postprocedural pneumothorax (principal); J90 Pleural effusion, not elsewhere classified; C34.31 Malignant neoplasm of lower lobe, right bronchus or lung; J44.9 Chronic obstructive pulmonary disease, unspecified; I11.0 Hypertensive heart disease with heart failure; I50.9 Heart failure, unspecified; E11.51 Type 2 diabetes mellitus with diabetic peripheral angiopathy without gangrene; I48.91 Unspecified atrial fibrillation; E03.9 Hypothyroidism, unspecified; K21.9 Gastro-esophageal reflux disease without esophagitis; G47.33 Obstructive sleep apnea (adult) (pediatric); E78.5 Hyperlipidemia, unspecified; I25.10 Atherosclerotic heart disease of native coronary artery without angina pectoris; Z95.2 Presence of prosthetic heart valve; Z87.891 Personal history of nicotine dependence; Z79.899 Other long term (current) drug therapy; Z79.82 Long term (current) use of aspirin; Z79.4 Long term (current) use of insulin; Z98.84 Bariatric surgery status; H35.30 Unspecified macular degeneration